=== PATIENT | female | born 1955 | race Caucasian/White ===

== ENCOUNTER 2019-04-18 21:51 | Observation (INO) ==
[2019-04-18] MEDS ORDERED: NITROSTAT SL PRN (22:28)
[2019-04-18] MEDS ORDERED: DUONEB 0.5 MG/3 MG NEB ONE (22:28)
[2019-04-18] MEDS ORDERED: ASPIRIN PO ONE (22:30)
--- NOTE | 2019-04-18 22:43 | DR.CP ---
HPI Time Seen Time Seen by Provider: 04/18/19 22:27 PCP Primary Care Physician: PALOMO Myles Chief Complaint Doctor Comments: Pt presented with CP/sob. Pt has COPD and had sudden onset of left sternal CP at rest 3 hours ago. She reports stabbing 8/10 pain that does not radiate and worse with lying flat. She took her 's nitro with some relief but now pain as returned. She reports ZELAYA and wears home O2 at night. She reports some epigastric pain, but denies any n/v, increase cough of sputum production or fever. Pt currently on theophyllen Chief Complaint:: "MY CHEST STAERTED HURTING 2 OR 3 HOURS AGO. I TOOK A NITRO AND IT EASED OFF. NOW IT IS BACK. Self Treatment fo Chief Complaint: NITRO Reviewed Nurses Notes Review: Yes Source History Provided: Patient Mode of Arrival Mode of Arrival: Ambulatory Timing Onset of Chief Complaint: 04/18/19 Came on: Suddenly Pain: Present Now Duration Duration: Constant Duration: Hours (3) Location Location of Chest Pain: Chest Chest Pain Radiation Location: None Context Onset: At rest and With light exertion Cardiac Risk Factors: Smoker, Family History, Hyperlipidemia and HTN PE Risk Factors: None History of: None Prehospital Care: SL Nitro Quality Quality: Stabbing Severity Severity: Moderate Modifying Factors Worsens: Exertion and Breathing Impoves: NTG (sling) Associated Signs and Symptoms Associated Signs and Symptoms: Shortness of Breath and Abdominal Pain; denies Palpitations, Diaphoresis, Nausea/Vomiting and Calf Pain/Swelling PMH PMH Past Medical History: Yes Past Medical History: COPD, Dyslipidemia, GERD and Hypertension Past Surgical History: Yes Surgical History: [employer] Surgery Family History History of Family Medical Conditions: No (UNKNOWN) Family Medical History Comment: PT ADOPTED. NO KNOWLEDGE OF FAMILY HISTORY Social History Does patient currently use any type of tobacco product: Yes Have you used tobacco products in the last 12 months: Yes Type of Tobacco Use: Cigarettes How many years tobacco product used: 45 Alcohol Use: None Do you use any recreational Drugs:: No Lives With: Spouse Lives Where: Home infectious screening In the last 2 months have you had wt loss of >10#?: NO Have you had fever, night sweats or hemotysis?: No Have you traveled outside the country in the last 6 months?: No Isolation: Standard ROS Review of Systems Constitutional: negative Chills, Fever, Weakness and Loss of Appetite Eyes: negative Blurred Vision ENTM: negative Nose Congestion Respiratoy: Productive Cough and Short of Breath; negative Wheezing Cardiovascular: Chest Pain; negative Edema Gastrointestinal/Abdominal: Abdominal Pain (epigastric); negative Constipation, Nausea and Vomiting Genitourinary: negative Dysuria and Hematuria Neurological: negative Weakness and Speech Problem Musculoskeletal: negative Joint Swelling and Muscle Pain Integumentary: negative Rash Hematologic/Lymphatic: negative Easy Bleeding and Lymphadenopathy Endocrine: negative Unexplained Weight Gain and Decreased Appetite Psychiatric: negative Depression All Other Systems: Reviewed and Negative PE Vitals Vitals: Temperature 98 F Pulse Rate 100 Respiratory Rate 35 Blood Pressure 197/89 O2 Sat by Pulse Oximetry 98 General Limitations: No Limitations General Appearance: Alert and In Distress (respiratory distress) Head Head Exam: Normal Inspection and Normocephalic Eyes Eye exam: Normal Appearance and EOMI; negative Scleral Icterus ENT ENT Exam: Normal Exam, Normal Oropharynx and Mucous Membranes Moist Chest Chest Inspection: Normal Inspection; negative Tenderness Respiratory Respiratory Exam: Prolonged Expiratory Phase and Respiratory Distress; negative Normal Lung Sounds Bilat, Accessory Muscle Use and Chest Wall Tenderness Respiratory Exam: Bilateral: Decreased Breath Sounds (distant) Cardiovascular Cardiovascular Exam: Regular Rate, Normal Rhythm and Normal Heart Sounds Pulse: Normal and Radial Abdominal Exam Abdominal Exam: Normal Inspection, Normal Bowel Sounds, Soft and Tenderness (epigastric) Abdominal Tenderness: Epigastrium Extremities Extremities Exam: Normal Inspection, Full ROM and Normal Capillary Refill; negative Tenderness, Edema and Calf Tenderness Neurologic Neurological Exam: Alert, Oriented X3 and Normal Gait; negative Motor Sensory Deficit Psychiatric Psychiatric Exam: Normal Affect and Normal Mood Skin Skin Exam: Warm, Dry, Intact and Normal Color; negative Rash MDM Additional Information Additional Information Obtained From: Old Records Differential Diagnosis Differential Diagnosis: Angina, Esophageal Reflux/Spasm, Myocardial Infarction, Pleuritis, Pneumonia, Pneumothorax and Pulmonary Embolus COURSE Reevaluation 1st: Improved (pt feeling better after duoneb. K 2.8 will replace K. d/w pt results and will admit) Consultation Consultation Comments: 23:[address] Clarke and will admit Education/Counseling Education/Counseling: Patient, Family, Education and Counseling Educated On: Treatment, Diagnosis, Prognosis and Needs for Follow Up (pcp) ROR Labs Reviewed Laboratory Results Reviewed?: Yes Result Diagrams: 04/18/19 22:58 04/18/19 22:58 Laboratory: WBC 6.9 X10^3/uL (3.6-10.0) 04/18/19 22:58 RBC 4.72 X10^6/uL (3.5-5.4) 04/18/19 22:58 Hgb 15.5 g/dL (12.0-16.0) 04/18/19 22:58 Hct 44.7 % (36.0-47.0) 04/18/19 22:58 MCV 94.6 fL (80.0-100.0) 04/18/19 22:58 MCH 32.9 pg (27.0-34.0) 04/18/19 22:58 MCHC 34.7 g/dL (33.0-35.0) 04/18/19 22:58 RDW 13.6 % (11.6-16.5) 04/18/19 22:58 Plt Count 261 X10^3/uL (150.0-450.0) 04/18/19 22:58 MPV 7.9 fL (7.4-11.0) 04/18/19 22:58 Neut % (Auto) 62.9 % (42.0-75.0) 04/18/19 22:58 Lymph % (Auto) 25.3 % (21.0-51.0) 04/18/19 22:58 [place] % (Auto) 8.8 % (0.0-13.0) 04/18/19 22:58 Eos % (Auto) 2.5 % (0.9-2.9) 04/18/19 22:58 Baso % (Auto) 0.5 % (0.2-1.0) 04/18/19 22:58 Neut # (Auto) 4.3 x10^3/uL (2.2-4.8) 04/18/19 22:58 Lymph # (Auto) 1.7 X10^3/uL (1.3-2.9) 04/18/19 22:58 [place] # (Auto) 0.6 x10^3/uL (0.3-0.8) 04/18/19 22:58 Eos # (Auto) 0.2 x10^3/uL (0.0-0.2) 04/18/19 22:58 Baso # (Auto) 0.0 X10^3/uL (0.0-0.1) 04/18/19 22:58 Absolute Nucleated RBC 0.0 /100WBC 04/18/19 22:58 PT 12.3 SECONDS (11.8-14.3) 04/18/19 22:58 INR Target Range - 04/18/19 22:58 INR 0.95 (0.8-1.3) 04/18/19 22:58 Sodium 142 mmol/L (136-145) 04/18/19 22:58 Corrected Sodium TNP 04/18/19 22:58 Potassium 2.8 mmol/L (3.5-5.1) L* 04/18/19 22:58 Chloride 102 mmol/L (98-107) 04/18/19 22:58 Carbon Dioxide 30.9 mmol/L (21-32) 04/18/19 22:58 BUN 5 mg/dL (7-18) L 04/18/19 22:58 Creatinine 0.76 mg/dL (0.55-1.02) 04/18/19 22:58 Est GFR (MDRD) Af Amer > 60 (>60) 04/18/19 22:58 Est GFR (MDRD) Non-Af > 60 (>60) 04/18/19 22:58 Glucose 92 mg/dL (65-99) 04/18/19 22:58 Calcium 9.2 mg/dL (8.5-10.1) 04/18/19 22:58 Magnesium 1.9 mg/dL (1.7-2.9) 04/18/19 22:58 Troponin I < 0.02 ng/mL (0-1.5) 04/18/19 22:58 Theophylline 9.8 ug/mL (10-20) L 04/18/19 22:58 Other Results Comments: WBC 6.9 K 2.8 trop neg Theophylline 9.8 Low XRAY XRAY Interpreted by: Radiologist and Self XRAY Findings: CXR COPD EKG Rate: 87 [place]: Normal Rhythm: NSR Block: None Hypertrophy: None ST: Nonsp Opioid Opioid Risk Tool Total: 0 Total Score Risk Category: Low Risk Copyright: [facility] predicting aberrant behaviors Diagnosis Discharge Problem: Acute dyspnea, Hypertensive urgency, Acute hypokalemia Chest pain Qualifiers: Chest pain type: other chest pain Qualified Code(s): R07.89 - Other chest pain COPD (chronic obstructive pulmonary disease) Qualifiers: COPD type: COPD with acute exacerbation Qualified Code(s): J44.1 - Chronic obstructive pulmonary disease with (acute) exacerbation Instructions Forms: Excuse From Work ADDITIONAL NOTES Additional Notes Additional Notes: I have personally reviewed your medications, lab results, imaging and time was spent discussion results. Patient educated on their health issue. They verbalized their understanding and agreed with plan of care. Condition: Stable Disposition: Admit
[2019-04-18] MEDS ORDERED: CATAPRES TAB 0.2 MG PO ONE (22:47)
--- NOTE | 2019-04-18 22:55 | RAD ---
HISTORY: Chest pain Study: Single-view change Comparison: None Findings: The patient is rotated. The cardiac silhouette is unremarkable. The lungs are well expanded without focal infiltrate or effusion. Chronic appearing interstitial changes are seen throughout both lungs. The aortic knob is partially calcified. IMPRESSION: 1. Radiographic findings of COPD. Reported By:
[2019-04-18 23:10] LABS: BASOPHILS % (AUTO) 0.5 % (0.2-1.0); EOSINOPHILS # (AUTO) 0.2 x10^3/uL (0.0-0.2); EOSINOPHILS % (AUTO) 2.5 % (0.9-2.9); HEMATOCRIT 44.7 % (36.0-47.0); HEMOGLOBIN 15.5 g/dL (12.0-16.0); LYMPHOCYTES # (AUTO) 1.7 X10^3/uL (1.3-2.9); LYMPHOCYTES % (AUTO) 25.3 % (21.0-51.0); MEAN CORPUSCULAR HEMOGLOBIN 32.9 pg (27.0-34.0); MEAN CORPUSCULAR HGB CONC 34.7 g/dL (33.0-35.0); MEAN CORPUSCULAR VOLUME 94.6 fL (80.0-100.0); MEAN PLATELET VOLUME 7.9 fL (7.4-11.0); MONOCYTES # (AUTO) 0.6 x10^3/uL (0.3-0.8); MONOCYTES % (AUTO) 8.8 % (0.0-13.0); NEUTROPHILS # (AUTO) 4.3 x10^3/uL (2.2-4.8); NEUTROPHILS % (AUTO) 62.9 % (42.0-75.0); PLATELET COUNT 261 X10^3/uL (150.0-450.0); RED BLOOD COUNT 4.72 X10^6/uL (3.5-5.4); RED CELL DISTRIBUTION WIDTH 13.6 % (11.6-16.5); WHITE BLOOD COUNT 6.9 X10^3/uL (3.6-10.0)
[2019-04-18 23:19] LABS: BLOOD UREA NITROGEN 5 mg/dL (7-18); CALCIUM 9.2 mg/dL (8.5-10.1); CARBON DIOXIDE 30.9 mmol/L (21-32); CHLORIDE 102 mmol/L (98-107); CREATININE 0.76 mg/dL (0.55-1.02); SODIUM 142 mmol/L (136-145); TROPONIN I < 0.02 ng/mL (0-1.5); eGFR NON BLACK RACES > 60 (>60)
[2019-04-18] MEDS ORDERED: PREDNISONE TAB 20 MG PO ONE ×2 (23:25→23:37)
[2019-04-18] MEDS ORDERED: NS + KCL 40 MEQ/L 1,000 ML IV SCH (23:45)
[2019-04-18] MEDS ORDERED: K-LYTE EFFERVESCENT PO ONE (23:50)
[2019-04-19] MEDS ORDERED: APRESOLINE INJ 20 MG VIAL IVP PRN (00:04)
[2019-04-19] MEDS ORDERED: DUONEB 0.5 MG/3 MG NEB SCH (01:00)
[2019-04-19] MEDS: DUONEB 0.5 MG/3 MG NEB SCH ×5 (01:22→16:30)
[2019-04-19 01:23] VITALS: BMI 16.5
[2019-04-19] MEDS ORDERED: TYLENOL 325 MG TAB PO PRN (01:39)
[2019-04-19 05:07] LABS: BASOPHILS % (AUTO) 0.3 % (0.2-1.0); EOSINOPHILS % (AUTO) 0.3 % (0.9-2.9); HEMOGLOBIN 14.2 g/dL (12.0-16.0); LYMPHOCYTES # (AUTO) 0.4 X10^3/uL (1.3-2.9); LYMPHOCYTES % (AUTO) 5.4 % (21.0-51.0); MEAN CORPUSCULAR HGB CONC 34.8 g/dL (33.0-35.0); MEAN CORPUSCULAR VOLUME 94.9 fL (80.0-100.0); MEAN PLATELET VOLUME 8.7 fL (7.4-11.0); MONOCYTES # (AUTO) 0.1 x10^3/uL (0.3-0.8); MONOCYTES % (AUTO) 1.5 % (0.0-13.0); NEUTROPHILS # (AUTO) 6.1 x10^3/uL (2.2-4.8); NEUTROPHILS % (AUTO) 92.5 % (42.0-75.0); PLATELET COUNT 229 X10^3/uL (150.0-450.0); RED BLOOD COUNT 4.32 X10^6/uL (3.5-5.4); RED CELL DISTRIBUTION WIDTH 13.6 % (11.6-16.5); WHITE BLOOD COUNT 6.6 X10^3/uL (3.6-10.0)
[2019-04-19 05:20] LABS: BLOOD UREA NITROGEN 6 mg/dL (7-18); CALCIUM 8.9 mg/dL (8.5-10.1); CARBON DIOXIDE 27.4 mmol/L (21-32); CHLORIDE 105 mmol/L (98-107); COR NA(FOR HYPERGLY) 142 mmol/L (136-145); CREATININE 0.66 mg/dL (0.55-1.02); SODIUM 141 mmol/L (136-145); TROPONIN I < 0.02 ng/mL (0-1.5); eGFR NON BLACK RACES > 60 (>60)
[2019-04-19 05:26] LABS: PLATELET MORPHOLOGY COMMENT NORMAL (NORMAL)
[2019-04-19] MEDS ORDERED: SALINE 3% 15 ML NEB TX NEB ONE (08:41)
[2019-04-19] MEDS ORDERED: PHARMACY CONSULT - DOSE _____ XX SCH (09:00)
[2019-04-19] MEDS: LOVENOX INJ 40 MG SYR SC SCH (13:04)
[2019-04-19] MEDS: NS 1000 ML 1,000 ML IV SCH (14:57)
[2019-04-19] MEDS: NEURONTIN CAP 300 MG PO SCH (21:06)
[2019-04-19] MEDS: CRESTOR TAB 10 MG PO SCH (21:06)
[2019-04-19] MEDS: PriLOSEC PO SCH (21:06)
[2019-04-20] MEDS: XOPENEX 1.25 MG/3 ML NEBULE NEB SCH ×4 (00:11→17:37)
[2019-04-20 05:15] LABS: BASOPHILS # (AUTO) 0.1 X10^3/uL (0.0-0.1); BASOPHILS % (AUTO) 0.9 % (0.2-1.0); EOSINOPHILS # (AUTO) 0.1 x10^3/uL (0.0-0.2); EOSINOPHILS % (AUTO) 1.2 % (0.9-2.9); HEMATOCRIT 39.7 % (36.0-47.0); HEMOGLOBIN 13.4 g/dL (12.0-16.0); LYMPHOCYTES # (AUTO) 1.8 X10^3/uL (1.3-2.9); LYMPHOCYTES % (AUTO) 22.3 % (21.0-51.0); MEAN CORPUSCULAR HEMOGLOBIN 32.6 pg (27.0-34.0); MEAN CORPUSCULAR HGB CONC 33.8 g/dL (33.0-35.0); MEAN CORPUSCULAR VOLUME 96.6 fL (80.0-100.0); MEAN PLATELET VOLUME 8.8 fL (7.4-11.0); MONOCYTES # (AUTO) 0.7 x10^3/uL (0.3-0.8); MONOCYTES % (AUTO) 8.8 % (0.0-13.0); NEUTROPHILS # (AUTO) 5.5 x10^3/uL (2.2-4.8); NEUTROPHILS % (AUTO) 66.8 % (42.0-75.0); PLATELET COUNT 213 X10^3/uL (150.0-450.0); RED BLOOD COUNT 4.11 X10^6/uL (3.5-5.4); RED CELL DISTRIBUTION WIDTH 13.5 % (11.6-16.5); WHITE BLOOD COUNT 8.3 X10^3/uL (3.6-10.0)
--- NOTE | 2019-04-20 05:30 | RAD ---
Examination: AP chest History: SOB Comparison 04/18/2019 Findings: Continued normal heart size with pulmonary hyperinflation and diffuse interstitial coarsening of the interstitial pulmonary pattern. No superimposed consolidation, pneumothorax or developing pleural effusion. Impression: Stable chronic findings. No interval change. Reported By:
[2019-04-20 05:32] LABS: ALANINE AMINOTRANSFERASE 17 Units/L (12-78); ALBUMIN 2.8 g/dL (3.4-5.0); ALKALINE PHOSPHATASE 56 Units/L (46-116); ASPARTATE AMINO TRANSFERASE 28 Units/L (15-37); BLOOD UREA NITROGEN 6 mg/dL (7-18); CARBON DIOXIDE 27.8 mmol/L (21-32); CHLORIDE 108 mmol/L (98-107); CREATININE 0.55 mg/dL (0.55-1.02); SODIUM 143 mmol/L (136-145); TOTAL PROTEIN 5.8 g/dL (6.4-8.2); eGFR NON BLACK RACES > 60 (>60)
[2019-04-20] MEDS: NS 1000 ML 1,000 ML IV SCH ×3 (05:59→18:18)
[2019-04-20] MEDS ORDERED: KLOR-CON PO PRN (07:55)
[2019-04-20] MEDS ORDERED: POTASSIUM CHL 40 MEQ/NS 0.45% 500 ML IV PRN (07:55)
[2019-04-20] MEDS ORDERED: K-DUR TAB 20 MEQ PO PRN (07:55)
[2019-04-20] MEDS ORDERED: K-RIDER 10 MEQ/NS 100 ML 10 MEQ/100 ML BAG IV PRN (07:55)
[2019-04-20] MEDS ORDERED: MICRO K EXTEN CAP 10 MEQ PO PRN (07:55)
[2019-04-20] MEDS ORDERED: POTASSIUM CHL 60 MEQ/NS 0.45% 500 ML IV PRN (07:55)
[2019-04-20] MEDS ORDERED: POTASSIUM CHLORIDE LIQ 20 MEQ UDC PO PRN (07:55)
[2019-04-20 08:38] LABS: CKMB % 3.3 % (<4); CREATINE KINASE 185 Units/L (26-192); TROPONIN I < 0.02 ng/mL (0-1.5)
[2019-04-20 08:44] LABS: CREATINE KINASE MB 6.1 ng/mL (0-4.0)
[2019-04-20] MEDS ORDERED: DALIRESP PO SCH (09:00)
[2019-04-20] MEDS: LOVENOX INJ 40 MG SYR SC SCH (09:06)
[2019-04-20 14:26] LABS: CKMB % 3.8 % (<4); CREATINE KINASE 250 Units/L (26-192); TROPONIN I < 0.02 ng/mL (0-1.5)
[2019-04-20 14:31] LABS: CREATINE KINASE MB 9.5 ng/mL (0-4.0)
[2019-04-20 20:13] LABS: CKMB % 4.7 % (<4); CREATINE KINASE 278 Units/L (26-192); TROPONIN I < 0.02 ng/mL (0-1.5)
[2019-04-20 20:21] LABS: CREATINE KINASE MB 13.1 ng/mL (0-4.0)
[2019-04-20] MEDS: PriLOSEC PO SCH (21:28)
[2019-04-20] MEDS: NEURONTIN CAP 300 MG PO SCH (21:29)
[2019-04-20] MEDS: CRESTOR TAB 10 MG PO SCH (21:29)
[2019-04-21] MEDS: XOPENEX 1.25 MG/3 ML NEBULE NEB SCH ×2 (00:15→05:30)
[2019-04-21 05:01] LABS: BASOPHILS # (AUTO) 0.1 X10^3/uL (0.0-0.1); BASOPHILS % (AUTO) 0.8 % (0.2-1.0); EOSINOPHILS # (AUTO) 0.2 x10^3/uL (0.0-0.2); EOSINOPHILS % (AUTO) 2.5 % (0.9-2.9); HEMATOCRIT 44.6 % (36.0-47.0); HEMOGLOBIN 15.1 g/dL (12.0-16.0); LYMPHOCYTES # (AUTO) 1.9 X10^3/uL (1.3-2.9); LYMPHOCYTES % (AUTO) 23.5 % (21.0-51.0); MEAN CORPUSCULAR HEMOGLOBIN 32.3 pg (27.0-34.0); MEAN CORPUSCULAR HGB CONC 33.8 g/dL (33.0-35.0); MEAN CORPUSCULAR VOLUME 95.7 fL (80.0-100.0); MEAN PLATELET VOLUME 8.8 fL (7.4-11.0); MONOCYTES # (AUTO) 0.8 x10^3/uL (0.3-0.8); MONOCYTES % (AUTO) 10.2 % (0.0-13.0); NEUTROPHILS # (AUTO) 5.1 x10^3/uL (2.2-4.8); PLATELET COUNT 257 X10^3/uL (150.0-450.0); RED BLOOD COUNT 4.66 X10^6/uL (3.5-5.4); RED CELL DISTRIBUTION WIDTH 13.5 % (11.6-16.5); WHITE BLOOD COUNT 8.1 X10^3/uL (3.6-10.0)
[2019-04-21 05:19] LABS: ALANINE AMINOTRANSFERASE 23 Units/L (12-78); ALBUMIN 3.2 g/dL (3.4-5.0); ALKALINE PHOSPHATASE 73 Units/L (46-116); ASPARTATE AMINO TRANSFERASE 35 Units/L (15-37); BLOOD UREA NITROGEN 9 mg/dL (7-18); CALCIUM 8.6 mg/dL (8.5-10.1); CARBON DIOXIDE 30.7 mmol/L (21-32); CHLORIDE 103 mmol/L (98-107); COR CA(FOR HYPOALB) 9.2 mg/dL (8.5-10.1); CREATININE 0.66 mg/dL (0.55-1.02); SODIUM 140 mmol/L (136-145); TOTAL PROTEIN 6.6 g/dL (6.4-8.2); eGFR NON BLACK RACES > 60 (>60)
--- NOTE | 2019-04-21 05:51 | RAD ---
Chest radiograph, single view. History: Shortness of breath Comparison: 04/20/2019. Findings: The lungs are hyperinflated with diffuse chronic interstitial lung changes, compatible COPD. There is no new consolidation or effusion. Cardiac silhouette and pulmonary vasculature are within normal limits. Conclusion: Stable examination without acute chest process. Reported By:
[2019-04-21] MEDS: NS 1000 ML 1,000 ML IV SCH (07:05)
[2019-04-21 07:43] VITALS: BP 151/65
[2019-04-21] MEDS: LOVENOX INJ 40 MG SYR SC SCH (08:53)
--- NOTE | 2019-04-21 13:30 | DR.H&P ---
H&P - History & Physical for Day of: H&P Date: 04/19/19 - Chief Complaint Chief Complaint: CHEST PAIN, SOB - History of Present Illness History of Present Illness: IS A 63 YEAR OLD PATIENT OF OURS WHO PRESENTED TO THE ER WITH COMPLAINTS OF CHEST PAIN. PAINT REPORTEDLY STARTED 2-3 HOURS PRIOR TO ARRIVAL. SHE REPORTS TAKING A NITROGLYCERIN WITH SLIGHT IMPROVEMENT IN PAIN, HOWEVER, PAIN HAS RETURNED. SHE ALSO COMPLAINS OF SHORTNESS OF BREATH. PATIENT HAS A HISTORY OF COPD FOR WHICH SHE USES OXYGEN VIA NASAL CANNULA AT BEDTIME. SHE DENIES NAUSEA, VOMITING, OR COUGH. PAIN IS DESCRIBED SUBSTERNAL AND IS RATED 8/10. ON ARRIVAL TO THE ER, VITALS WERE 98.0-96-35-90%-197/89. LABS WERE OBTAINED. ABNORMAL LAB VALUES INCLUDE THE FOLLOWING: POTASSIUM 2.8, BUN 5, THEYOPHYLLINE 9.8. CARDIAC ENZYMES ARE WITHIN NORMAL LIMITS. AN EKG WAS OBTAINED AND REVEALED: SINUS RHYTHM WITH HR 87. A CHEST XRAY WAS OBTAINED AND REVEALED: RADIOGRAPHIC FINDINGS OF COPD. SHE WAS GIVEN A DUONEB, ASPIRIN 325MG PO X 1, CATAPRES 0.2MG PO X 1, PREDNISONE 60MG PO X 1, AND GIVEN K-LYTE EFFERVESCENT 25MEQ PO X 1 DOSE. BLOOD PRESSURE DID DECREASE TO 143/63. SHE WAS ADMITTED FOR FURTHER EVALUATION AND TREATMENTE OF HYPOKALEMIA, COPD, CHEST PAIN, AND HYPERTENSIVE URGENCY URGENCY. SHE WAS STARTED ON NORMAL SALINE WITH 40MEQ KCL AT 80ML/HR, RESPIRATORY TREATMENTS, LOVENOX 40MG SC DAILY, AND HOME MEDICATIONS WERE RESUMED. WE PLAN TO OBTAIN SERIAL CARDIAC ENZYMES AND EKGS. OTHERWISE, WE WILL FOLLOW UP WITH AM LABS AND CHEST XRAY AND CONTINUE TO MONITOR. - Past Medical History Past Medical History: Hypertension, Dyslipidemia, COPD, GERD - Past Surgical History Surgical History: - Social History Does patient currently use any type of tobacco product: Yes Have you used tobacco products in the last 12 months: Yes Type of Tobacco Use: Cigarettes How many years tobacco product used: 45 Alcohol Use: None Drug Use: None - Medications Home Medications: No Known Drug Allergies Allergy (Verified 04/18/19 23:01) CONTINUE taking the following medications Daliresp 250 mcg PO HS 04/19/19 [History] albuterol sulfate 2.5 mg INHALATION QID 04/19/19 [History] gabapentin 300 mg PO HS 04/19/19 [History] metoprolol succinate 50 mg PO HS 04/19/19 [History] omeprazole 40 mg PO HS 04/19/19 [History] rosuvastatin 10 mg PO HS 04/19/19 [History] New Prescriptions roflumilast [Daliresp] 250 mcg PO HS tab 04/21/19 [Rx] - Review of Systems Constitutional: No Symptoms Reported Eyes: No Symptoms Reported ENT: No Symptoms Reported Respiratory: Shortness of Breath Cardiovascular: Chest Pain Gastrointestinal: No Symptoms Reported Genitourinary: No Symptoms Reported Musculoskeletal: No Symptoms Reported Skin: No Symptoms Reported Neurological: No Symptoms Reported - Physical Exam Vital Signs: Temperature 98.1 F Pulse Rate [Brachial] 78 Pulse Rate 98 Respiratory Rate 18 Blood Pressure [Left Arm] 151/65 Blood Pressure 197/89 O2 Sat by Pulse Oximetry 95 Oriented: Normal Eyes: Normal Ear: Normal Nose: Normal Throat: Normal Respiratory: Diminished Throughout Cardiovascular: Normal. negative: S3, S4, Murmur : Normal Auscultation: Bowel Sounds: Normal Palpation: Normal Tenderness: Normal Skin: Normal Musculoskeletal: Normal Psychiatric: Normal Mood Description: Calm Affect: Normal Speech Pattern: Clear - Assessment/Plan (1) Chest pain Qualifiers: Chest pain type: other chest pain Qualified Code(s): R07.89 - Other chest pain; R07.8 - Other chest pain Status: Acute Plan: OBTAIN SERIAL CARDIAC ENZYMES AND EKGS, SUPPLEMENTAL OXYGEN, CONTINUE TO MONITOR (2) Acute dyspnea Status: Acute (3) COPD (chronic obstructive pulmonary disease) Qualifiers: COPD type: COPD with acute exacerbation Qualified Code(s): J44.1 - Chronic obstructive pulmonary disease with (acute) exacerbation Status: Acute Plan: RESPIRATORY TX, SUPPLEMENTAL OXYGEN, CONTINUE HOME MEDS (4) Hypertensive urgency Status: Acute Plan: APRESOLINE, CONTINUE HOME MEDS, CONTINUE TO MONITOR (5) Acute hypokalemia Status: Acute Plan: POTASSIUM PROTOCOL, CONTINUE TO MONTIOR - Allergies Allergies/Adverse Reactions: Allergies Allergy/AdvReac Type Severity Reaction Status Date / Time No Known Drug Allergies Allergy Verified 04/18/19 23:01
[2019-04-21] MEDS ORDERED: DALIRESP PO SCH (21:00)
== END 2019-04-21 10:30 | disposition home or self-care (01) ==
LOC: MED/SURG 21:58 → ER 21:58 → MED/SURG 04-19 00:48
PROVIDERS: ADMIT Internal Medicine; ATTEND Internal Medicine
DX: R07.89 Other chest pain; Z99.81 Dependence on supplemental oxygen; E78.2 Mixed hyperlipidemia; K21.9 Gastro-esophageal reflux disease without esophagitis; I16.0 Hypertensive urgency; J44.1 Chronic obstructive pulmonary disease with (acute) exacerbation; R26.89 Other abnormalities of gait and mobility; I10 Essential (primary) hypertension; E87.6 Hypokalemia; R06.02 Shortness of breath
CPT/HCPCS: 36415; 71010; 71045; 80048; 80053; 80198; 82550; 82553; 83735; 84132; 84484; 85025; 85610; 87070; 87205; 93005; 94640; 94760; 96365; 96367; 96374; 97165; 99284; A4222; G0378; J3490; J7030; J7512; J7620; J8499

== ENCOUNTER 2020-01-17 08:57 | Observation (INO) ==
[2020-01-17 13:14] LABS: BILIRUBIN,URINE NEGATIVE (NEGATIVE); BLOOD/HEMOGLOBIN,URINE NEGATIVE (NEGATIVE); GLUCOSE, URINE NEGATIVE (NEGATIVE); KETONES,URINE NEGATIVE (NEGATIVE); LEUKOCYTE ESTERASE ,URINE NEGATIVE (NEGATIVE); NITRITES,URINE NEGATIVE (NEGATIVE); PH,URINE 6.5 (5.0 - 8.0); PROTEIN,URINE NEGATIVE (NEGATIVE); UROBILINOGEN,URINE NORMAL (NORMAL)
[2020-01-17 13:37] LABS: APPEARANCE,URINE CLEAR (CLEAR); COLOR,URINE YELLOW (YELLOW)
[2020-01-17 13:57] VITALS: BMI 13.9
[2020-01-17 14:02] LABS: ABG BASE EXCESS 2.2 mmol/L (-2.0-2.0); ABG HCO3 24.2 mmol/L (22-26)
[2020-01-17] MEDS ORDERED: PROVENTIL NEB TX 0.083% 2.5MG/ 3ML NEB PRN (14:07)
[2020-01-17 14:25] LABS: BASOPHILS # (AUTO) 0.1 X10^3/uL (0.0-0.1); EOSINOPHILS # (AUTO) 0.5 x10^3/uL (0.0-0.2); EOSINOPHILS % (AUTO) 5.8 % (0.9-2.9); HEMATOCRIT 43.3 % (36.0-47.0); HEMOGLOBIN 14.9 g/dL (12.0-16.0); LYMPHOCYTES # (AUTO) 1.3 X10^3/uL (1.3-2.9); LYMPHOCYTES % (AUTO) 13.8 % (21.0-51.0); MEAN CORPUSCULAR HEMOGLOBIN 32.8 pg (27.0-34.0); MEAN CORPUSCULAR HGB CONC 34.4 g/dL (33.0-35.0); MEAN CORPUSCULAR VOLUME 95.3 fL (80.0-100.0); MEAN PLATELET VOLUME 8.6 fL (7.4-11.0); MONOCYTES # (AUTO) 0.6 x10^3/uL (0.3-0.8); MONOCYTES % (AUTO) 6.9 % (0.0-13.0); NEUTROPHILS # (AUTO) 6.9 x10^3/uL (2.2-4.8); NEUTROPHILS % (AUTO) 72.5 % (42.0-75.0); PLATELET COUNT 253 X10^3/uL (150.0-450.0); RED BLOOD COUNT 4.55 X10^6/uL (3.5-5.4); RED CELL DISTRIBUTION WIDTH 13.1 % (11.6-16.5); WHITE BLOOD COUNT 9.4 X10^3/uL (3.6-10.0)
[2020-01-17] MEDS: ZITHROMAX INJ 500 MG VIAL 500 MG in D5W 250 ML IV 250 ML IV SCH (15:00)
[2020-01-17] MEDS: NS 1000 ML 1,000 ML IV SCH (15:00)
[2020-01-17] MEDS: PROVENTIL NEB TX 0.083% 2.5MG/ 3ML NEB SCH ×3 (15:11→21:10)
[2020-01-17 15:22] LABS: ALANINE AMINOTRANSFERASE 24 Units/L (12-78); ALKALINE PHOSPHATASE 79 Units/L (46-116); ASPARTATE AMINO TRANSFERASE 38 Units/L (15-37); BLOOD UREA NITROGEN 17 mg/dL (7-18); CALCIUM 9.1 mg/dL (8.5-10.1); CARBON DIOXIDE 30.4 mmol/L (21-32); CHLORIDE 102 mmol/L (98-107); CKMB % 4.4 % (<4); CREATINE KINASE 257 Units/L (26-192); CREATININE 0.76 mg/dL (0.55-1.02); LACTATE DEHYDROGENASE 329 Units/L (81-234); SODIUM 140 mmol/L (136-145); TOTAL PROTEIN 7.9 g/dL (6.4-8.2); TROPONIN I < 0.02 ng/mL (0-1.5); eGFR NON BLACK RACES > 60 (>60)
[2020-01-17 15:29] LABS: CREATINE KINASE MB 11.2 ng/mL (0-4.0)
[2020-01-17] MEDS: SOLU-Medrol 40 MG VIAL IVP SCH ×2 (15:44→21:02)
--- NOTE | 2020-01-17 16:22 | RAD ---
HISTORYSOB, COPD EXACERBATION, FEVERSTUDYCHEST, 1 VIEWCOMPARISONChest film September 06, 2019FINDINGSThe trachea is midline. The cardiac silhouette is unremarkable . The lungs are markedly hyperexpanded and show chronic lung changes of fibrosis in both upper lung pierre without change from the September 06, 2019 film. No acute infiltrates are observed. Clear without focal infiltrate or effusion. The bony thorax is unremarkable.IMPRESSIONCOPD and chronic changes of fibrosis but no acute findings and no change from the September 06, 2019 recent chest film.Electronically signed by: LETICIA KAUR (January 17, 2020 16:21:39)
[2020-01-17] MEDS: ASPIRIN EC 81 MG PO SCH (21:01)
[2020-01-17] MEDS: CRESTOR TAB 10 MG PO SCH (21:01)
[2020-01-17] MEDS: COLACE CAP 100 MG PO SCH (21:01)
[2020-01-17] MEDS: PriLOSEC PO SCH (21:01)
[2020-01-17] MEDS: NEURONTIN CAP 300 MG PO SCH (21:02)
[2020-01-17] MEDS: LOPRESSOR TAB 50 MG PO SCH (21:02)
[2020-01-17] MEDS: MILK OF MAGNESIA PO SCH (21:08)
[2020-01-18] MEDS: PROVENTIL NEB TX 0.083% 2.5MG/ 3ML NEB SCH ×6 (01:15→20:55)
[2020-01-18] MEDS: NS 1000 ML 1,000 ML IV SCH ×3 (01:38→16:18)
[2020-01-18] MEDS: SOLU-Medrol 40 MG VIAL IVP SCH ×3 (05:08→21:01)
[2020-01-18 05:32] LABS: ALANINE AMINOTRANSFERASE 21 Units/L (12-78); ALBUMIN 3.3 g/dL (3.4-5.0); ALKALINE PHOSPHATASE 62 Units/L (46-116); ASPARTATE AMINO TRANSFERASE 24 Units/L (15-37); BLOOD UREA NITROGEN 13 mg/dL (7-18); CALCIUM 8.4 mg/dL (8.5-10.1); CARBON DIOXIDE 32.7 mmol/L (21-32); CHLORIDE 105 mmol/L (98-107); COR NA(FOR HYPERGLY) 143 mmol/L (136-145); CREATININE 0.73 mg/dL (0.55-1.02); SODIUM 142 mmol/L (136-145); TOTAL PROTEIN 6.4 g/dL (6.4-8.2); eGFR NON BLACK RACES > 60 (>60)
--- NOTE | 2020-01-18 05:33 | RAD ---
HISTORYSOB COPDSTUDYAP [id number] normal heart size, symmetric pulmonary hyperexpansion and diffuse bilateral pulmonary changes of interstitial fibrosis and scarring. No superimposed consolidat ion, edema or developing pneumothorax.IMPRESSIONNo change; no acute findings. COPD and interstitial f ibrosis.Electronically signed by: JERRY HANLEY (January 18, 2020 05:32:20)
[2020-01-18 05:58] LABS: CKMB % 5.1 % (<4); CREATINE KINASE 139 Units/L (26-192); TROPONIN I < 0.02 ng/mL (0-1.5)
[2020-01-18 06:00] LABS: CREATINE KINASE MB 7.1 ng/mL (0-4.0)
[2020-01-18 06:06] LABS: BASOPHILS % (AUTO) 0.2 % (0.2-1.0); EOSINOPHILS % (AUTO) 0.1 % (0.9-2.9); HEMOGLOBIN 12.7 g/dL (12.0-16.0); LYMPHOCYTES # (AUTO) 0.4 X10^3/uL (1.3-2.9); LYMPHOCYTES % (AUTO) 9.8 % (21.0-51.0); MEAN CORPUSCULAR HEMOGLOBIN 32.6 pg (27.0-34.0); MEAN CORPUSCULAR HGB CONC 34.4 g/dL (33.0-35.0); MEAN CORPUSCULAR VOLUME 94.8 fL (80.0-100.0); MEAN PLATELET VOLUME 8.8 fL (7.4-11.0); MONOCYTES # (AUTO) 0 x10^3/uL (0.3-0.8); MONOCYTES % (AUTO) 1.2 % (0.0-13.0); NEUTROPHILS # (AUTO) 3.5 x10^3/uL (2.2-4.8); NEUTROPHILS % (AUTO) 88.7 % (42.0-75.0); PLATELET COUNT 214 X10^3/uL (150.0-450.0); RED CELL DISTRIBUTION WIDTH 12.9 % (11.6-16.5)
[2020-01-18] MEDS ORDERED: POTASSIUM CHL 60 MEQ/NS 0.45% 500 ML IV PRN (07:15)
[2020-01-18] MEDS ORDERED: K-RIDER 10 MEQ/NS 100 ML 10 MEQ/100 ML BAG IV PRN (07:15)
[2020-01-18] MEDS ORDERED: MICRO K EXTEN CAP 10 MEQ PO PRN (07:15)
[2020-01-18] MEDS ORDERED: POTASSIUM CHL 40 MEQ/NS 0.45% 500 ML IV PRN (07:15)
[2020-01-18] MEDS ORDERED: POTASSIUM CHLORIDE LIQ 20 MEQ UDC PO PRN (07:15)
[2020-01-18] MEDS ORDERED: KLOR-CON PO PRN (07:15)
[2020-01-18] MEDS: LOPRESSOR TAB 50 MG PO SCH ×2 (09:26→21:00)
[2020-01-18] MEDS: ZITHROMAX INJ 500 MG VIAL 500 MG in D5W 250 ML IV 250 ML IV SCH (09:27)
[2020-01-18] MEDS: MILK OF MAGNESIA PO SCH ×2 (09:27→21:00)
[2020-01-18] MEDS: K-DUR TAB 20 MEQ PO PRN (09:30)
--- NOTE | 2020-01-18 11:14 | DR.H&P ---
H&P History & Physical for Day of: H&P Date: 01/18/20 Chief Complaint Chief Complaint: shortness of breath Allergies Allergies Allergy/AdvReac Type Severity Reaction Status Date / Time No Known Drug Allergies Allergy Verified 04/18/19 23:01 History of Present Illness History of Present Illness: Ms. Abdullahi is a 64y/o female with a PMH of severe COPD on continuous home oxygen 2.5L and CPAP qHS presented with worsening SOB. She sees Dr. Funk and went to clinic on and was advised to go to ED but refused. She states her breathing got worse the next day and was directly admitted to the hospital. She smokes 2 cigarettes a day. She has been using albuterol more frequently and uses duonebs 4 times a day. She reports fever, no chills. She has hx of LE DVT years ago. On admission: CXR showed interstitial fibrosis and scarring with COPD changes. D-dimer: elevated 476 CRP: 5.20 LDH:329 CK: 257 Trop (-) AB.53/ COVID-19 negative Plan: continue solumedrol, azithromycin, replace K as per protocol, continue IVF Will get a CTA due to elevated d-dimer and SOB. Past Medical History Past Medical History: COPD, Dyslipidemia, GERD, Hypertension and Sleep Apnea Past Surgical History Surgical History: Social History Does patient currently use any type of tobacco product: Yes Have you used tobacco products in the last 12 months: Yes Type of Tobacco Use: Cigarettes How many years tobacco product used: 50 Does any household member use tobacco: No Alcohol Use: None Drug Use: None Medications Home Medications: No Known Drug Allergies Allergy (Verified 04/18/19 23:01) CONTINUE taking the following medications aspirin [Aspirin Low Dose] 81 mg PO HS 01/17/20 [History] Labs Result Diagrams: 01/18/20 04:36 01/18/20 04:36 Labs: 01/17/20 16:26 Sputum - Expectorated Sputum - Final Laboratory WBC 4.0 X10^3/uL (3.6-10.0) 01/18/20 04:36 RBC 3.90 X10^6/uL (3.5-5.4) 01/18/20 04:36 Hgb 12.7 g/dL (12.0-16.0) D 01/18/20 04:36 Hct 37.0 % (36.0-47.0) 01/18/20 04:36 MCV 94.8 fL (80.0-100.0) 01/18/20 04:36 MCH 32.6 pg (27.0-34.0) 01/18/20 04:36 MCHC 34.4 g/dL (33.0-35.0) 01/18/20 04:36 RDW 12.9 % (11.6-16.5) 01/18/20 04:36 Plt Count 214 X10^3/uL (150.0-450.0) 01/18/20 04:36 MPV 8.8 fL (7.4-11.0) 01/18/20 04:36 Neut % (Auto) 88.7 % (42.0-75.0) H 01/18/20 04:36 Lymph % (Auto) 9.8 % (21.0-51.0) L 01/18/20 04:36 [place] % (Auto) 1.2 % (0.0-13.0) 01/18/20 04:36 Eos % (Auto) 0.1 % (0.9-2.9) L 01/18/20 04:36 Baso % (Auto) 0.2 % (0.2-1.0) 01/18/20 04:36 Neut # (Auto) 3.5 x10^3/uL (2.2-4.8) 01/18/20 04:36 Lymph # (Auto) 0.4 X10^3/uL (1.3-2.9) L 01/18/20 04:36 [place] # (Auto) 0 x10^3/uL (0.3-0.8) L 01/18/20 04:36 Eos # (Auto) 0.0 x10^3/uL (0.0-0.2) 01/18/20 04:36 Baso # (Auto) 0.0 X10^3/uL (0.0-0.1) 01/18/20 04:36 Absolute Nucleated RBC 0.1 /100WBC 01/18/20 04:36 PT 13.4 SECONDS (11.8-14.3) 01/17/20 13:55 INR Target Range - 01/17/20 13:55 INR 1.05 (0.8-1.3) 01/17/20 13:55 APTT 29.9 SECONDS (22.9-36.5) 01/17/20 13:55 PTT Comment - 01/17/20 13:55 D-Dimer 476 ng/mL (0-400) H* 01/17/20 13:55 Sample Site Rb 01/17/20 13:56 ABG pH 7.530 (7.35-7.45) H 01/17/20 13:56 ABG pCO2 29.0 mmHg (35.0-45.0) L 01/17/20 13:56 ABG pO2 82.0 mmHg (80.0-100.0) 01/17/20 13:56 ABG HCO3 24.2 mmol/L (22-26) 01/17/20 13:56 ABG O2 Saturation 97.0 % (90-100) 01/17/20 13:56 ABG Base Excess 2.2 mmol/L (-2.0-2.0) H 01/17/20 13:56 Xavier Test Na 01/17/20 13:56 A-a Gradient 81.0 mmHg 01/17/20 13:56 FiO2 28.0 01/17/20 13:56 Blood Gas Comments Kayla well cb 01/17/20 13:56 Sodium 142 mmol/L (136-145) 01/18/20 04:36 Corrected Sodium 143 mmol/L (136-145) 01/18/20 04:36 Potassium 3.4 mmol/L (3.5-5.1) L 01/18/20 04:36 Chloride 105 mmol/L (98-107) 01/18/20 04:36 Carbon Dioxide 32.7 mmol/L (21-32) H 01/18/20 04:36 BUN 13 mg/dL (7-18) 01/18/20 04:36 Creatinine 0.73 mg/dL (0.55-1.02) 01/18/20 04:36 Est GFR (MDRD) Af Amer > 60 (>60) 01/18/20 04:36 Est GFR (MDRD) Non-Af > 60 (>60) 01/18/20 04:36 Glucose 134 mg/dL (65-99) H 01/18/20 04:36 Calcium 8.4 mg/dL (8.5-10.1) L 01/18/20 04:36 Corrected Calcium 9.0 mg/dL (8.5-10.1) 01/18/20 04:36 Magnesium 1.9 mg/dL (1.7-2.9) 01/18/20 04:36 Ferritin 238 ng/mL (8-252) 01/17/20 13:55 Total Bilirubin 0.80 mg/dL (0.2-1.0) 01/18/20 04:36 AST 24 Units/L (15-37) 01/18/20 04:36 ALT 21 Units/L (12-78) 01/18/20 04:36 Alkaline Phosphatase 62 Units/L (46-116) 01/18/20 04:36 Lactate Dehydrogenase 329 Units/L (81-234) H 01/17/20 13:55 Creatine Kinase 139 Units/L (26-192) 01/18/20 04:36 CK-MB (CK-2) 7.1 ng/mL (0-4.0) H* 01/18/20 04:36 CK/CKMB % Calc 5.1 % (<4) 01/18/20 04:36 Troponin I < 0.02 ng/mL (0-1.5) 01/18/20 04:36 C-Reactive Protein 3.60 mg/L (0-3.0) H 01/18/20 04:36 Total Protein 6.4 g/dL (6.4-8.2) 01/18/20 04:36 Albumin 3.3 g/dL (3.4-5.0) L 01/18/20 04:36 Globulin 3.1 g/dL (2.5-4.5) 01/18/20 04:36 Albumin/Globulin Ratio 1.1 Ratio (1.1-2.1) 01/18/20 04:36 Specimen Type Clean catch urine 01/17/20 12:57 Urine Color Yellow (YELLOW) 01/17/20 12:57 Urine Appearance Clear (CLEAR) 01/17/20 12:57 Urine pH 6.5 (5.0 - 8.0) 01/17/20 12:57 Ur Specific [place] 1.015 (1.000-1.030) 01/17/20 12:57 Urine Protein Negative (NEGATIVE) 01/17/20 12:57 Urine Glucose (UA) Negative (NEGATIVE) 01/17/20 12:57 Urine Ketones Negative (NEGATIVE) 01/17/20 12:57 Urine Occult Blood Negative (NEGATIVE) 01/17/20 12:57 Urine Nitrite Negative (NEGATIVE) 01/17/20 12:57 Urine Bilirubin Negative (NEGATIVE) 01/17/20 12:57 Urine Urobilinogen Normal (NORMAL) 01/17/20 12:57 Ur Leukocyte Esterase Negative (NEGATIVE) 01/17/20 12:57 SARS-CoV-2 (PCR) Negative (NEGATIVE) 01/17/20 12:00 Review of Systems Constitutional: Fever and Weakness Eyes: No Symptoms Reported ENT: No Symptoms Reported Respiratory: Cough, Shortness of Breath and SOB with Excertion Cardiovascular: No Symptoms Reported Gastrointestinal: No Symptoms Reported Genitourinary: No Symptoms Reported Musculoskeletal: No Symptoms Reported Skin: No Symptoms Reported Neurological: No Symptoms Reported Physical Exam Vital Signs: Temperature 97.8 F Pulse Rate [Right] 72 Pulse Rate 83 Respiratory Rate 18 Blood Pressure [Left Arm] 170/74 Blood Pressure 201/83 O2 Sat by Pulse Oximetry 92 Oriented: Normal Eyes: Normal Ear: Normal Nose: Normal Respiratory: Diminished Throughout Cardiovascular: Normal Auscultation: Bowel Sounds: Normal Palpation: Normal Tenderness: Normal Skin: Normal Musculoskeletal: Normal Psychiatric: Normal Mood Description: Calm Affect: Normal Assessment/Plan (1) COPD with acute exacerbation: Status: Acute (2) Acute dyspnea: Status: Acute (3) Elevated d-dimer: Status: Acute (4) Hypokalemia: Status: Acute (5) Tobacco abuse: Status: Acute (6) Protein calorie malnutrition: Qualifiers: Protein-calorie malnutrition severity: moderate Qualified Code(s): E44.0 - Moderate protein-calorie malnutrition Status: Acute Review H&P Reviewed: Yes Patient was examined?: Yes
[2020-01-18] MEDS: MAGNESIUM SULFATE 1 GRAM/100 mL PREMIX 1 GM/100 ML BAG IV PRN ×2 (12:04→13:45)
--- NOTE | 2020-01-18 15:55 | CT ---
HISTORYSOB, ELEVATED D-DIMER; RULE OUT PESTUDYCTA CHESTCOMPARISONNoneTECHNIQUEMultiple axial images of the chest were obtained from the thoracic inlet to the upper abdomen after the administration of IV contrast. A PE protocol with 3D reconstructions utilizing axial MIPS imaging was performed and reviewed. Dose reduction techniques including Automated Exposure Control (AEC) and adjustment of mA and kV were utilized.FINDINGSThe mediastinum does not demonstrate significant pathological lymphadenopathy. There is no pericardial effusion observed. The thoracic aorta demonstrates atherosclerosis without evidence for aneurysmal dilatation. The central pulmonary arterial system does not demonstrate central filling defects to suggest pulmonary emboli.Evaluation of the lung parenchyma fails to demonstrate focal consolidation or effusion. There is a faint 3 mm right upper lobe nodule image 59. this could be followed according to the Fleischner guidelines. Severe emphysematous changes are noted throughout the lungs the bony thorax is unremarkable in its appearance . The visualized portions of the upper abdomen are grossly unremarkable .IMPRESSIONSevere facet and changes with a 3 mm right upper lobe pulmonary nodule as above. No acute findings are seenElectronically signed by: WARREN MONTERO (January 18, 2020 15:52:32)
[2020-01-18] MEDS: CRESTOR TAB 10 MG PO SCH (20:59)
[2020-01-18] MEDS: COLACE CAP 100 MG PO SCH (20:59)
[2020-01-18] MEDS: NEURONTIN CAP 300 MG PO SCH (21:00)
[2020-01-18] MEDS: PriLOSEC PO SCH (21:00)
[2020-01-18] MEDS: ASPIRIN EC 81 MG PO SCH (21:01)
[2020-01-19] MEDS: PROVENTIL NEB TX 0.083% 2.5MG/ 3ML NEB SCH ×3 (00:40→08:12)
[2020-01-19] MEDS: NS 1000 ML 1,000 ML IV SCH (05:41)
[2020-01-19] MEDS: SOLU-Medrol 40 MG VIAL IVP SCH (05:42)
[2020-01-19 06:13] LABS: BASOPHILS % (AUTO) 0.1 % (0.2-1.0); HEMATOCRIT 35.6 % (36.0-47.0); HEMOGLOBIN 12.2 g/dL (12.0-16.0); LYMPHOCYTES # (AUTO) 0.5 X10^3/uL (1.3-2.9); MEAN CORPUSCULAR HGB CONC 34.4 g/dL (33.0-35.0); MEAN CORPUSCULAR VOLUME 95.9 fL (80.0-100.0); MEAN PLATELET VOLUME 8.5 fL (7.4-11.0); MONOCYTES # (AUTO) 0.5 x10^3/uL (0.3-0.8); NEUTROPHILS # (AUTO) 8.6 x10^3/uL (2.2-4.8); NEUTROPHILS % (AUTO) 89.9 % (42.0-75.0); PLATELET COUNT 229 X10^3/uL (150.0-450.0); RED BLOOD COUNT 3.71 X10^6/uL (3.5-5.4); RED CELL DISTRIBUTION WIDTH 13.2 % (11.6-16.5); WHITE BLOOD COUNT 9.6 X10^3/uL (3.6-10.0)
[2020-01-19 06:19] LABS: ALANINE AMINOTRANSFERASE 24 Units/L (12-78); ALBUMIN 3.1 g/dL (3.4-5.0); ALKALINE PHOSPHATASE 57 Units/L (46-116); ASPARTATE AMINO TRANSFERASE 21 Units/L (15-37); BLOOD UREA NITROGEN 16 mg/dL (7-18); CALCIUM 8.1 mg/dL (8.5-10.1); CARBON DIOXIDE 32.4 mmol/L (21-32); CHLORIDE 106 mmol/L (98-107); COR CA(FOR HYPOALB) 8.8 mg/dL (8.5-10.1); COR NA(FOR HYPERGLY) 143 mmol/L (136-145); CREATININE 0.63 mg/dL (0.55-1.02); MAGNESIUM 2.2 mg/dL (1.7-2.9); SODIUM 142 mmol/L (136-145); TOTAL PROTEIN 6.1 g/dL (6.4-8.2); eGFR NON BLACK RACES > 60 (>60)
--- NOTE | 2020-01-19 06:34 | RAD ---
HISTORYSOBSTUDYCHEST, 1 VIEWCOMPARISONMay 2019TECHNIQUEPortable chest x-rayFINDINGSHeart size and mediastinal contours are normal. Lungs are clear as are the pleural spaces. No free air or pneumothorax. No acute bony abonormality. Chronic interstitial lung changes with flattening of the diaphragm consistent with COPD is observed. There is parenchymal scarring within the left apex. Moderate scoliotic curvature is observed.IMPRESSIONSevere COPD with emphysematous changes and interstitial scarring.Moderate scoliosisElectronically signed by: ELIZABETH RAO (January 19, 2020 06:32:56)
[2020-01-19] MEDS: K-DUR TAB 20 MEQ PO PRN (08:34)
[2020-01-19] MEDS: LOPRESSOR TAB 50 MG PO SCH (08:34)
[2020-01-19] MEDS: ZITHROMAX INJ 500 MG VIAL 500 MG in D5W 250 ML IV 250 ML IV SCH (08:35)
[2020-01-19] MEDS ORDERED: MILK OF MAGNESIA PO PRN (08:46)
[2020-01-19 10:33] VITALS: BP 201/83
[2020-01-19] MEDS ORDERED: DIFLUCAN PO ONE (11:02)
--- NOTE | 2020-01-19 11:04 | W.DIS.FURT ---
Summary of Discharge Discharge Summary of Date Date of Exam: 01/19/20 Admission Date Date of Admission: 01/17/20 Admission Diagnosis Hospital Course: Ms. Abdullahi is a 64y/o female with a PMH of severe COPD on continuous home oxygen 2.5L and CPAP qHS presented with worsening SOB. She sees Dr. Funk and went to clinic on and was advised to go to ED but refused. She states her breathing got worse the next day and was directly admitted to the hospital. She smokes 2 cigarettes a day. She has been using albuterol more frequently and uses duonebs 4 times a day. She reports fever, no chills. She has hx of LE DVT years ago. On admission: CXR showed interstitial fibrosis and scarring with COPD changes. D-dimer: elevated 476 CRP: 5.20 LDH:329 CK: 257 Trop (-) AB.53///24 .COVID-19 negative. She was started on IV steroids and azithromax. She recieved duonebs. CT-PE was done due to elevated d-dimer and was negative for pulmonary embolism. Patient remained on her home oxygen 2L. She was stable for discharge on oral azithromax and Medrol dose pack. She will follow up with PCP as scheduled. Vital Signs: Vital Signs (72 hours) 01/17/20 13:15 01/17/20 14:54 01/17/20 15:12 Temperature 98.5 F Pulse Rate Pulse Rate [Right] 84 Respiratory Rate 42 H Blood Pressure 201/83 Blood Pressure [Left Arm] 163/74 O2 Sat by Pulse Oximetry 98 97 95 01/17/20 16:00 01/17/20 19:29 01/17/20 21:10 Temperature 98.3 F 98.6 F Pulse Rate 75 Pulse Rate [Right] 86 89 Respiratory Rate 42 H 26 H Blood Pressure Blood Pressure [Left Arm] 173/76 172/74 O2 Sat by Pulse Oximetry 96 92 L 98 01/17/20 23:54 01/18/20 03:29 01/18/20 08:00 Temperature 97.9 F 98.9 F 97.8 F Pulse Rate Pulse Rate [Right] 69 71 72 Respiratory Rate 22 20 18 Blood Pressure Blood Pressure [Left Arm] 141/68 147/65 170/74 O2 Sat by Pulse Oximetry 96 97 95 01/18/20 09:21 01/18/20 12:00 01/18/20 16:00 Temperature 97.9 F 98.0 F Pulse Rate 83 Pulse Rate [Right] 80 89 Respiratory Rate 18 18 Blood Pressure Blood Pressure [Left Arm] 134/60 141/65 O2 Sat by Pulse Oximetry 92 L 96 96 01/18/20 20:00 01/18/20 20:55 01/19/20 00:00 Temperature 97.5 F L 97.1 F L Pulse Rate 88 Pulse Rate [Right] 89 81 Respiratory Rate 22 20 Blood Pressure Blood Pressure [Left Arm] 159/69 154/70 O2 Sat by Pulse Oximetry 97 96 96 01/19/20 04:00 01/19/20 07:49 01/19/20 08:12 Temperature 97.6 F 98.4 F Pulse Rate 90 Pulse Rate [Right] 72 79 Respiratory Rate 23 18 Blood Pressure Blood Pressure [Left Arm] 145/65 184/87 O2 Sat by Pulse Oximetry 98 99 98 01/19/20 10:33 Temperature Pulse Rate 90 Pulse Rate [Right] Respiratory Rate Blood Pressure 201/83 Blood Pressure [Left Arm] O2 Sat by Pulse Oximetry 98 Labs: Laboratory Last Values WBC 9.6 X10^3/uL (3.6-10.0) 01/19/20 05:24 RBC 3.71 X10^6/uL (3.5-5.4) 01/19/20 05:24 Hgb 12.2 g/dL (12.0-16.0) 01/19/20 05:24 Hct 35.6 % (36.0-47.0) L 01/19/20 05:24 MCV 95.9 fL (80.0-100.0) 01/19/20 05:24 MCH 33.0 pg (27.0-34.0) 01/19/20 05:24 MCHC 34.4 g/dL (33.0-35.0) 01/19/20 05:24 RDW 13.2 % (11.6-16.5) 01/19/20 05:24 Plt Count 229 X10^3/uL (150.0-450.0) 01/19/20 05:24 MPV 8.5 fL (7.4-11.0) 01/19/20 05:24 Neut % (Auto) 89.9 % (42.0-75.0) H 01/19/20 05:24 Lymph % (Auto) 5.0 % (21.0-51.0) L 01/19/20 05:24 [place] % (Auto) 5.0 % (0.0-13.0) 01/19/20 05:24 Eos % (Auto) 0.0 % (0.9-2.9) L 01/19/20 05:24 Baso % (Auto) 0.1 % (0.2-1.0) L 01/19/20 05:24 Neut # (Auto) 8.6 x10^3/uL (2.2-4.8) H 01/19/20 05:24 Lymph # (Auto) 0.5 X10^3/uL (1.3-2.9) L 01/19/20 05:24 [place] # (Auto) 0.5 x10^3/uL (0.3-0.8) 01/19/20 05:24 Eos # (Auto) 0.0 x10^3/uL (0.0-0.2) 01/19/20 05:24 Baso # (Auto) 0.0 X10^3/uL (0.0-0.1) 01/19/20 05:24 Absolute Nucleated RBC 0.0 /100WBC 01/19/20 05:24 PT 13.4 SECONDS (11.8-14.3) 01/17/20 13:55 INR Target Range - 01/17/20 13:55 INR 1.05 (0.8-1.3) 01/17/20 13:55 APTT 29.9 SECONDS (22.9-36.5) 01/17/20 13:55 PTT Comment - 01/17/20 13:55 D-Dimer 476 ng/mL (0-400) H* 01/17/20 13:55 Sample Site Rb 01/17/20 13:56 ABG pH 7.530 (7.35-7.45) H 01/17/20 13:56 ABG pCO2 29.0 mmHg (35.0-45.0) L 01/17/20 13:56 ABG pO2 82.0 mmHg (80.0-100.0) 01/17/20 13:56 ABG HCO3 24.2 mmol/L (22-26) 01/17/20 13:56 ABG O2 Saturation 97.0 % (90-100) 01/17/20 13:56 ABG Base Excess 2.2 mmol/L (-2.0-2.0) H 01/17/20 13:56 Xavier Test Na 01/17/20 13:56 A-a Gradient 81.0 mmHg 01/17/20 13:56 FiO2 28.0 01/17/20 13:56 Blood Gas Comments Kayla well cb 01/17/20 13:56 Sodium 142 mmol/L (136-145) 01/19/20 05:24 Corrected Sodium 143 mmol/L (136-145) 01/19/20 05:24 Potassium 3.7 mmol/L (3.5-5.1) 01/19/20 05:24 Chloride 106 mmol/L (98-107) 01/19/20 05:24 Carbon Dioxide 32.4 mmol/L (21-32) H 01/19/20 05:24 BUN 16 mg/dL (7-18) 01/19/20 05:24 Creatinine 0.63 mg/dL (0.55-1.02) 01/19/20 05:24 Est GFR (MDRD) Af Amer > 60 (>60) 01/19/20 05:24 Est GFR (MDRD) Non-Af > 60 (>60) 01/19/20 05:24 Glucose 123 mg/dL (65-99) H 01/19/20 05:24 Calcium 8.1 mg/dL (8.5-10.1) L 01/19/20 05:24 Corrected Calcium 8.8 mg/dL (8.5-10.1) 01/19/20 05:24 Magnesium 2.2 mg/dL (1.7-2.9) 01/19/20 05:24 Ferritin 238 ng/mL (8-252) 01/17/20 13:55 Total Bilirubin 0.30 mg/dL (0.2-1.0) 01/19/20 05:24 AST 21 Units/L (15-37) 01/19/20 05:24 ALT 24 Units/L (12-78) 01/19/20 05:24 Alkaline Phosphatase 57 Units/L (46-116) 01/19/20 05:24 Lactate Dehydrogenase 329 Units/L (81-234) H 01/17/20 13:55 Creatine Kinase 139 Units/L (26-192) 01/18/20 04:36 CK-MB (CK-2) 7.1 ng/mL (0-4.0) H* 01/18/20 04:36 CK/CKMB % Calc 5.1 % (<4) 01/18/20 04:36 Troponin I < 0.02 ng/mL (0-1.5) 01/18/20 04:36 C-Reactive Protein 3.60 mg/L (0-3.0) H 01/18/20 04:36 Total Protein 6.1 g/dL (6.4-8.2) L 01/19/20 05:24 Albumin 3.1 g/dL (3.4-5.0) L 01/19/20 05:24 Globulin 3.0 g/dL (2.5-4.5) 01/19/20 05:24 Albumin/Globulin Ratio 1.0 Ratio (1.1-2.1) L 01/19/20 05:24 Specimen Type Clean catch urine 01/17/20 12:57 Urine Color Yellow (YELLOW) 01/17/20 12:57 Urine Appearance Clear (CLEAR) 01/17/20 12:57 Urine pH 6.5 (5.0 - 8.0) 01/17/20 12:[address] [place] 1.015 (1.000-1.030) 01/17/20 12:57 Urine Protein Negative (NEGATIVE) 01/17/20 12:57 Urine Glucose (UA) Negative (NEGATIVE) 01/17/20 12:57 Urine Ketones Negative (NEGATIVE) 01/17/20 12:57 Urine Occult Blood Negative (NEGATIVE) 01/17/20 12:57 Urine Nitrite Negative (NEGATIVE) 01/17/20 12:57 Urine Bilirubin Negative (NEGATIVE) 01/17/20 12:57 Urine Urobilinogen Normal (NORMAL) 01/17/20 12:57 Ur Leukocyte Esterase Negative (NEGATIVE) 01/17/20 12:57 SARS-CoV-2 (PCR) Negative (NEGATIVE) 01/17/20 12:00 Reason For Visit: SOB,FEVER,COUGH,COPD Discharge Date Discharge Date: 01/19/20 Discharge Diagnosis All Active Problems (Updated 01/18/20 @ 11:14 by Jazzy Damon) Protein calorie malnutrition (Acute) Elevated d-dimer (Acute) Chest pain (Acute) Acute dyspnea (Acute) COPD (chronic obstructive pulmonary disease) (Acute) Hypertensive urgency (Acute) Acute hypokalemia (Acute) COPD with acute exacerbation (Acute) Hypokalemia (Acute) Hyperglycemia (Acute) Tobacco abuse (Acute) Plan of Treatment: Continue with present treatment and follow up plan. Pt is to keep follow up appointment as instructed and take medications as ordered. Discharge Medications Discharge Medications: No Known Drug Allergies Allergy (Verified 04/18/19 23:01) CONTINUE taking the following medications aspirin [Aspirin Low Dose] 81 mg PO HS 01/17/20 [History] New Prescriptions azithromycin 250 mg PO DAILY 3 Days #3 tab 01/19/20 [Rx] methylprednisolone [Medrol (Iraj)] See Rx Instructions .ROUTE .COMPLEX #21 ea 01/19/20 [Rx] Follow up and Referral Follow Up: 1 Week (PCP) Discharge Disposition Discharge Disposition: Home Discharge Condition: Stable
[2020-01-19] MEDS ORDERED: DIFLUCAN ONE (11:16)
== END 2020-01-19 11:35 | disposition home or self-care (01) ==
LOC: OBS → MED/SURG 13:16
PROVIDERS: ADMIT Internal Medicine; ATTEND Internal Medicine
DX: M41.9 Scoliosis, unspecified; R50.9 Fever, unspecified; Z11.59 Encounter for screening for other viral diseases; Z99.81 Dependence on supplemental oxygen; R79.1 Abnormal coagulation profile; J44.1 Chronic obstructive pulmonary disease with (acute) exacerbation; Z72.0 Tobacco use; R06.02 Shortness of breath; E87.6 Hypokalemia; R79.89 Other specified abnormal findings of blood chemistry; R91.1 Solitary pulmonary nodule; R94.31 Abnormal electrocardiogram [ECG] [EKG]
CPT/HCPCS: 36415; 36600; 71010; 71045; 71275; 80053; 81003; 82550; 82553; 82728; 82803; 83615; 83735; 84484; 85025; 85378; 85610; 85730; 86140; 87040; 87070; 87205; 87635; 93005; 94640; 94760; 96360; 96361; 96374; A4216; A4222; A7030; G0378; J0456; J2920; J3475; J7030; J7060; J7613

== ENCOUNTER 2020-10-15 13:20 | Inpatient (IN) ==
[2020-10-15] MEDS ORDERED: DUONEB 0.5 MG/3 MG (3 mL) NEB SCH (18:30)
[2020-10-15 18:49] LABS: ABG BASE EXCESS 14.9 mmol/L (-2.0-2.0)
[2020-10-15 18:50] LABS: ABG HCO3 41.3 mmol/L (22-26)
--- NOTE | 2020-10-15 18:59 | RAD ---
HISTORYPT. C/O SHORTNESS OF BREATH WHICH WORSENED LAST NIGHT.SKYLER VELARDE/LAT [id number]/2020FINDINGSLungs are hyperinflated with emphysematous changes. No superimposed pneumonia. No pleural effusion or pneumothorax.Heart size is normal. Vascular calcifications are present compatible with atherosclerosis.Mild scoliosis.IMPRESSION1. No acute finding2. EmphysemaElectronically signed by: Dandre Landry (Oct 15, 2020 18:57:46)
[2020-10-15] MEDS ORDERED: SOLU-Medrol 40 MG VIAL ONE (19:04)
[2020-10-15] MEDS ORDERED: FORTAZ or TAZICEF VIAL INJ ONE ×2 (19:04→22:27)
[2020-10-15] MEDS ORDERED: NS 100 ML IV + SPIKE MINIBAG* 100 ML IV ONE ×2 (19:04→22:27)
[2020-10-15] MEDS ORDERED: ROBITUSSIN DM ONE ×2 (19:04→22:26)
[2020-10-15] MEDS ORDERED: NS 1/2 1000 ML IV 1,000 ML IV ONE (19:05)
[2020-10-15] MEDS: FORTAZ or TAZICEF VIAL INJ 1 G in NS 100 ML IV + SPIKE MINIBAG* 100 ML IV SCH ×3 (19:05→22:32)
[2020-10-15] MEDS ORDERED: LEVAQUIN PREMIX IV 500 MG 500 MG/100 ML BAG IV ONE (19:05)
[2020-10-15] MEDS: ROBITUSSIN DM PO SCH ×3 (19:07→22:32)
[2020-10-15 19:08] LABS: BASOPHILS % (AUTO) 0.2 % (0.2-1.0); EOSINOPHILS % (AUTO) 0.2 % (0.9-2.9); HEMATOCRIT 46.5 % (36.0-47.0); HEMOGLOBIN 15.9 g/dL (12.0-16.0); LYMPHOCYTES # (AUTO) 0.2 X10^3/uL (1.3-2.9); MEAN CORPUSCULAR HEMOGLOBIN 32.1 pg (27.0-34.0); MEAN CORPUSCULAR HGB CONC 34.2 g/dL (33.0-35.0); MEAN CORPUSCULAR VOLUME 93.9 fL (80.0-100.0); MEAN PLATELET VOLUME 8.2 fL (7.4-11.0); MONOCYTES # (AUTO) 0.2 x10^3/uL (0.3-0.8); MONOCYTES % (AUTO) 0.9 % (0.0-13.0); NEUTROPHILS # (AUTO) 18.1 x10^3/uL (2.2-4.8); NEUTROPHILS % (AUTO) 97.7 % (42.0-75.0); PLATELET COUNT 214 X10^3/uL (150.0-450.0); RED BLOOD COUNT 4.96 X10^6/uL (3.5-5.4); RED CELL DISTRIBUTION WIDTH 13.9 % (11.6-16.5); WHITE BLOOD COUNT 18.5 X10^3/uL (3.6-10.0)
[2020-10-15] MEDS: NS 1/2 1000 ML IV 1,000 ML IV SCH (19:09)
[2020-10-15] MEDS: LEVAQUIN PREMIX IV 500 MG 500 MG/100 ML BAG IV SCH (19:10)
[2020-10-15 19:21] LABS: BLOOD UREA NITROGEN 13 mg/dL (7-18); CALCIUM 9.5 mg/dL (8.5-10.1); CARBON DIOXIDE 38.3 mmol/L (21-32); CHLORIDE 95 mmol/L (98-107); CREATININE 0.79 mg/dL (0.55-1.02); eGFR NON BLACK RACES > 60 (>60)
[2020-10-15 19:24] LABS: ALANINE AMINOTRANSFERASE 28 Units/L (12-78); ALBUMIN 3.7 g/dL (3.4-5.0); ALKALINE PHOSPHATASE 97 Units/L (46-116); ASPARTATE AMINO TRANSFERASE 28 Units/L (15-37); TOTAL PROTEIN 7.3 g/dL (6.4-8.2)
[2020-10-15 19:26] LABS: COR NA(FOR HYPERGLY) 142 mmol/L (136-145)
[2020-10-15 19:27] LABS: SODIUM 140 mmol/L (136-145)
[2020-10-15 19:38] LABS: PLATELET MORPHOLOGY COMMENT NORMAL (NORMAL)
[2020-10-15] MEDS ORDERED: DUONEB 0.5 MG/3 MG (3 mL) NEB ONE (19:38)
[2020-10-15] MEDS ORDERED: PULMICORT NEB TX 0.5 MG NEB ONE (19:38)
[2020-10-15] MEDS: VSL#3 PO SCH (19:40)
[2020-10-15] MEDS: PULMICORT NEB TX 0.5 MG NEB SCH (20:05)
[2020-10-15] MEDS: DUONEB 0.5 MG/3 MG (3 mL) NEB SCH (20:05)
[2020-10-15] MEDS: SOLU-Medrol 40 MG VIAL IVP SCH (21:37)
[2020-10-16] MEDS: DUONEB 0.5 MG/3 MG (3 mL) NEB SCH ×6 (00:29→20:28)
[2020-10-16] MEDS: TUSSIONEX PENNKINETIC SUSP PO PRN (02:13)
[2020-10-16] MEDS ORDERED: KLOR-CON PO PRN (03:12)
[2020-10-16] MEDS ORDERED: POTASSIUM CHLORIDE LIQ 20 MEQ UDC PO PRN (03:12)
[2020-10-16] MEDS ORDERED: MICRO K EXTEN CAP 10 MEQ PO PRN (03:12)
[2020-10-16] MEDS ORDERED: POTASSIUM CHL 60 MEQ/NS 0.45% 500 ML IV PRN (03:12)
[2020-10-16] MEDS ORDERED: POTASSIUM CHL 40 MEQ/NS 0.45% 500 ML IV PRN (03:12)
[2020-10-16] MEDS ORDERED: K-RIDER 10 MEQ/NS 100 ML 10 MEQ/100 ML BAG IV PRN (03:12)
[2020-10-16] MEDS: SOLU-Medrol 40 MG VIAL IVP SCH ×3 (05:30→22:22)
[2020-10-16] MEDS: FORTAZ or TAZICEF VIAL INJ 1 G in NS 100 ML IV + SPIKE MINIBAG* 100 ML IV SCH ×3 (05:30→22:21)
[2020-10-16 06:24] LABS: BASOPHILS # (AUTO) 0.1 X10^3/uL (0.0-0.1); BASOPHILS % (AUTO) 0.5 % (0.2-1.0); HEMATOCRIT 44.3 % (36.0-47.0); HEMOGLOBIN 15.2 g/dL (12.0-16.0); LYMPHOCYTES # (AUTO) 0.3 X10^3/uL (1.3-2.9); MEAN CORPUSCULAR HGB CONC 34.2 g/dL (33.0-35.0); MEAN CORPUSCULAR VOLUME 93.6 fL (80.0-100.0); MEAN PLATELET VOLUME 8.7 fL (7.4-11.0); MONOCYTES # (AUTO) 0.6 x10^3/uL (0.3-0.8); MONOCYTES % (AUTO) 3.7 % (0.0-13.0); NEUTROPHILS # (AUTO) 14.1 x10^3/uL (2.2-4.8); NEUTROPHILS % (AUTO) 93.8 % (42.0-75.0); PLATELET COUNT 206 X10^3/uL (150.0-450.0); RED BLOOD COUNT 4.73 X10^6/uL (3.5-5.4); RED CELL DISTRIBUTION WIDTH 13.8 % (11.6-16.5)
[2020-10-16 06:41] LABS: ALANINE AMINOTRANSFERASE 33 Units/L (12-78); ALBUMIN 3.5 g/dL (3.4-5.0); ALKALINE PHOSPHATASE 89 Units/L (46-116); ASPARTATE AMINO TRANSFERASE 34 Units/L (15-37); BLOOD UREA NITROGEN 11 mg/dL (7-18); CALCIUM 9.1 mg/dL (8.5-10.1); CARBON DIOXIDE 38.5 mmol/L (21-32); CHLORIDE 95 mmol/L (98-107); COR NA(FOR HYPERGLY) 140 mmol/L (136-145); SODIUM 139 mmol/L (136-145); eGFR NON BLACK RACES > 60 (>60)
--- NOTE | 2020-10-16 06:41 | RAD ---
HISTORYShortness of breathSTUDYChest AP [id number]/2021FINDINGSThe heart is within normal limits in size. The pradip are normal. The lungs are markedly hyperinflated consistent with COPD in the appropriate clinical setting. No acute alveolar infiltrates or pleural effusions are identified. Bony thorax is unremarkable.IMPRESSIONCOPDNo acute infiltratesElectronically signed by: NATASHA PEACOCK (Oct 16, 2020 06:39:43)
[2020-10-16 06:48] LABS: PLATELET MORPHOLOGY COMMENT NORMAL (NORMAL)
[2020-10-16] MEDS: PULMICORT NEB TX 0.5 MG NEB SCH ×2 (09:05→20:28)
[2020-10-16] MEDS: VSL#3 PO SCH (09:06)
[2020-10-16] MEDS: LEVAQUIN PREMIX IV 500 MG 500 MG/100 ML BAG IV SCH (09:06)
[2020-10-16] MEDS: ROBITUSSIN DM PO SCH ×4 (09:06→20:18)
[2020-10-16] MEDS: LOVENOX INJ 40 MG SYR SC SCH ×2 (09:08→09:25)
--- NOTE | 2020-10-16 11:19 | DR.H&P ---
H&P - History & Physical for Day of: H&P Date: 10/15/20 - Chief Complaint Chief Complaint: SHORTNESS OF BREATH, COUGH - History of Present Illness History of Present Illness: IS A 64 YEAR OLD PATIENT OF OURS. SHE PRESENTED TO THE OFFICE TODAY WITH COMPLAINTS OF SHORTNESS OF BREATH AND COUGH. SYMPTOMS STARTED TWO DAYS PRIOR TO VISIT, BUT HAD PROGRESSIVELY GOTTEN WORSE. PATIENT DOES HAVE A KNOW HISTORY OF COPD. SHE DENIES CHEST PAIN OR FEVER. SHE UTILIZES OXYGEN VIA NASAL CANNULA AT HOME, USUALLY AT 2.5 LITERS/MINUTE. WHILE IN THE OFFICE, HER SATURATIONS DROPPED TO 77% ON OXYGEN. HER OXYGEN WAS INCREASED TO 4 LITERS/MINUTE. SATURATIONS THEN INCREASED TO 90%. AUSCULTATION OF LUNG WALLACE REVEALED SCATTERED WHEEZING. SHE WAS ADMITTED TO THE HOSPITAL FOR FURTHER EVALUATION AND TREATMENT OF COPD EXACERBATION WITH ACUTE BRONCHITIS. ON ARRIVAL TO THE HOSPITAL, VITALS WERE 98.9-109-24-91%-159/72. LABS WERE OBTAINED. ABNORMAL LAB VALUES INCLUDE THE FOLLOWING: WBC 18.5, POTASSIUM 2.7, CHLORIDE 95, CARBON DIOXIDE 38.3, GLUCOSE 188. COVID-19 NEGATIVE. AN ABG WAS OBTAINED AND REVEALED: PH 7.460, PC02 58, P02 68, HC03 41.3, 02 SAT 94, BASE EXCESS 14.9, A-A GRADIENT 88, FI02 32. BLOOD AND SPUTUM CULTURES WERE SET UP. A CHEST XRAY WAS OBTAINED AND REVEALED: Lungs are hyperinflated with emphysematous changes. No superimposed pneumonia. No pleural effusion or pneumothorax. Heart size is normal. Vascular calcifications are present compatible with atherosclerosis. Mild scoliosis. SHE WAS STARTED ON 1/2NS AT 75 ML/HR, FORTAZ 1G IV Q8H, LEVAQUIN 500MG IV DAILY, LOVENOX 40MG SC DAILY, ROBITUSSIN DM 10 ML PO QID, TUSSIONEX 5ML PO Q12H PRN, SOLU-MEDROL 40MG IV Q8H, DUONEBS Q4H, PULMICORT NEBS BID, AND THE POTASSIUM AND MAGNESIUM PROTOCOLS. OTHERWISE, WE PLAN TO FOLLOW UP WITH AM LABS AND CHEST XRAY AND CONTINUE TO MONITOR. TIME SPENT ON CLINICAL ASSESSMENT, REVIEWING LABS AND IMAGING, DECISION MAKING, AND DOCUMENTATION GREATER THAN 75 MINUTES. - Past Medical History Past Medical History: Hypertension, Dyslipidemia, COPD, GERD, Sleep Apnea - Past Surgical History Surgical History: - Social History Does patient currently use any type of tobacco product: Yes Have you used tobacco products in the last 12 months: Yes Type of Tobacco Use: Cigarettes Does any household member use tobacco: No Alcohol Use: None Drug Use: None - Medications Home Medications: No Known Drug Allergies Allergy (Verified 04/18/19 23:01) CONTINUE taking the following medications amlodipine 10 mg PO DAILY 10/15/20 [History] gabapentin 300 mg PO HS 10/15/20 [History] prednisone 10 mg PO BID 10/15/20 [History] tizanidine 4 mg PO BID 10/15/20 [History] - Review of Systems Constitutional: Weakness Eyes: No Symptoms Reported ENT: No Symptoms Reported Respiratory: See HPI, Cough, Shortness of Breath, Wheezing Cardiovascular: No Symptoms Reported Gastrointestinal: No Symptoms Reported Genitourinary: No Symptoms Reported Musculoskeletal: No Symptoms Reported Skin: No Symptoms Reported Neurological: Weakness - Physical Exam Vital Signs: Temperature 98.2 F Pulse Rate [Left Radial] 24 Pulse Rate 95 Respiratory Rate 24 Blood Pressure [Left Arm] 158/73 Blood Pressure 165/76 O2 Sat by Pulse Oximetry 98 Oriented: Normal Eyes: Normal Ear: Normal Nose: Normal Throat: Normal Respiratory: Wheezes Throughout Cardiovascular: Normal : Normal Auscultation: Bowel Sounds: Normal Palpation: Normal Tenderness: Normal Skin: Normal Musculoskeletal: Normal Psychiatric: Normal Mood Description: Calm Affect: Normal Speech Pattern: Clear - Assessment/Plan (1) COPD with acute exacerbation Status: Acute Plan: ADMIT, 1/2NS AT 75 ML/HR, FORTAZ 1G IV Q8H, LEVAQUIN 500MG IV DAILY, LOVENOX 40MG SC DAILY, ROBITUSSIN DM 10 ML PO QID, TUSSIONEX 5ML PO Q12H PRN, SOLU-MEDROL 40MG IV Q8H, DUONEBS Q4H, PULMICORT NEBS BID, AND THE POTASSIUM AND MAGNESIUM PROTOCOLS (2) Acute bronchitis Qualifiers: Bronchitis organism: unspecified organism Qualified Code(s): J20.9 - Acute bronchitis, unspecified Status: Acute (3) Hypokalemia Status: Acute - Allergies Allergies/Adverse Reactions: Allergies Allergy/AdvReac Type Severity Reaction Status Date / Time No Known Drug Allergies Allergy Verified 04/18/19 23:01
[2020-10-16] MEDS: K-DUR TAB 20 MEQ PO PRN ×2 (11:49→16:51)
[2020-10-16 11:59] VITALS: BMI 11.8
[2020-10-16] MEDS: NORVASC TAB 10 MG PO SCH (14:00)
[2020-10-16] MEDS: ZANAFLEX PO SCH ×2 (14:00→20:17)
[2020-10-16] MEDS: TOPROL XL PO SCH (14:00)
[2020-10-16] MEDS ORDERED: NS 1/2 1000 ML IV 1,000 ML IV ONE ×2 (14:09→14:30)
[2020-10-16] MEDS: NS 1/2 1000 ML IV 1,000 ML IV SCH ×2 (14:15→14:20)
[2020-10-16] MEDS: NEURONTIN CAP 300 MG PO SCH (20:18)
[2020-10-16] MEDS: PriLOSEC PO SCH (20:18)
[2020-10-16] MEDS: ASPIRIN EC 81 MG PO SCH (20:19)
[2020-10-16] MEDS: CRESTOR TAB 10 MG PO SCH (20:19)
[2020-10-17] MEDS: DUONEB 0.5 MG/3 MG (3 mL) NEB SCH ×6 (00:02→20:15)
[2020-10-17] MEDS: TUSSIONEX PENNKINETIC SUSP PO PRN (01:08)
[2020-10-17] MEDS: FORTAZ or TAZICEF VIAL INJ 1 G in NS 100 ML IV + SPIKE MINIBAG* 100 ML IV SCH (05:28)
[2020-10-17] MEDS: SOLU-Medrol 40 MG VIAL IVP SCH ×3 (05:29→22:00)
[2020-10-17] MEDS ORDERED: NS 1/2 1000 ML IV 1,000 ML IV ONE (05:39)
[2020-10-17] MEDS: NS 1/2 1000 ML IV 1,000 ML IV SCH ×3 (05:41→23:00)
--- NOTE | 2020-10-17 05:44 | RAD ---
HISTORYSOB COPDSTUDYAP chestCOMPARISONFebruary 2020FINDINGSContinued normal heart size with symmetric pulmonary hyperaeration. There is no evidence for developing infiltrate, edema, pneumothorax or pleural fluid. Slight chronic coarsening of the interstitium.IMPRESSIONNo change. Pulmonary hyperinflation consistent with COPD. No acute component demonstrated.Electronically signed by: JERRY HANLEY (Oct 17, 2020 05:43:25)
[2020-10-17 06:36] LABS: ALANINE AMINOTRANSFERASE 35 Units/L (12-78); ALBUMIN 2.8 g/dL (3.4-5.0); ALKALINE PHOSPHATASE 72 Units/L (46-116); ASPARTATE AMINO TRANSFERASE 28 Units/L (15-37); BLOOD UREA NITROGEN 11 mg/dL (7-18); CALCIUM 8.5 mg/dL (8.5-10.1); CARBON DIOXIDE 34.9 mmol/L (21-32); CHLORIDE 102 mmol/L (98-107); COR CA(FOR HYPOALB) 9.5 mg/dL (8.5-10.1); COR NA(FOR HYPERGLY) 140 mmol/L (136-145); CREATININE 0.53 mg/dL (0.55-1.02); SODIUM 139 mmol/L (136-145); TOTAL PROTEIN 5.8 g/dL (6.4-8.2); eGFR NON BLACK RACES > 60 (>60)
[2020-10-17 06:41] LABS: BASOPHILS % (AUTO) 0.1 % (0.2-1.0); HEMATOCRIT 38.7 % (36.0-47.0); HEMOGLOBIN 13.1 g/dL (12.0-16.0); LYMPHOCYTES # (AUTO) 0.4 X10^3/uL (1.3-2.9); LYMPHOCYTES % (AUTO) 2.7 % (21.0-51.0); MEAN CORPUSCULAR HEMOGLOBIN 31.7 pg (27.0-34.0); MEAN CORPUSCULAR HGB CONC 33.8 g/dL (33.0-35.0); MEAN CORPUSCULAR VOLUME 93.7 fL (80.0-100.0); MEAN PLATELET VOLUME 8.4 fL (7.4-11.0); MONOCYTES # (AUTO) 0.4 x10^3/uL (0.3-0.8); MONOCYTES % (AUTO) 2.9 % (0.0-13.0); NEUTROPHILS # (AUTO) 12.3 x10^3/uL (2.2-4.8); NEUTROPHILS % (AUTO) 94.3 % (42.0-75.0); PLATELET COUNT 196 X10^3/uL (150.0-450.0); RED BLOOD COUNT 4.13 X10^6/uL (3.5-5.4); RED CELL DISTRIBUTION WIDTH 13.8 % (11.6-16.5); WHITE BLOOD COUNT 13.1 X10^3/uL (3.6-10.0)
[2020-10-17 06:51] LABS: PLATELET MORPHOLOGY COMMENT NORMAL (NORMAL)
[2020-10-17] MEDS: LOVENOX INJ 40 MG SYR SC SCH (09:05)
[2020-10-17] MEDS: PULMICORT NEB TX 0.5 MG NEB SCH ×2 (09:10→20:15)
[2020-10-17] MEDS: LEVAQUIN PREMIX IV 500 MG 500 MG/100 ML BAG IV SCH (09:16)
[2020-10-17] MEDS: NORVASC TAB 10 MG PO SCH (09:44)
[2020-10-17] MEDS: TOPROL XL PO SCH (09:44)
[2020-10-17] MEDS: ROBITUSSIN DM PO SCH ×4 (09:44→22:00)
[2020-10-17] MEDS: ZANAFLEX PO SCH ×2 (09:45→22:00)
[2020-10-17] MEDS: VSL#3 PO SCH (09:45)
--- NOTE | 2020-10-17 11:17 | PCM.PROG ---
Progress Note Progress Note for Day of Date of Exam: 10/17/20 Subjective Subjective: Patient seen at bedside, no events overnight. She states she is feeling better this morning. Her breathing has improved. She is coughing some sputum. She is currently on 3.5L NC, she sues 2.5L at home. Denies fever or chills. Denies GI Sx. Labs: WBC 13.1 CXR: suggestive of COPD, no infiltrate noted Sputum: normal toni Blood Cx: negative Plan: Wean O2 as tolerated, continue IS, bronchodilators. Will DC Fortaz, continue Levaquin. Continue solumedrol. Monitor AM labs. Past Medical Family Social History Past Med/Fam/Surg Hx: No changes since H&P Allergies: Allergies No Known Drug Allergies Allergy (Verified 04/18/19 23:01) Review of Systems ROS: No change since H&P Vital Signs and I&O's Vital Signs: Temperature 99.3 F Pulse Rate [Left Radial] 97 Pulse Rate 96 Respiratory Rate 24 Blood Pressure [Left Arm] 137/63 Blood Pressure 165/76 O2 Sat by Pulse Oximetry 92 Intake and Output: Intake & Output 10/14/20 10/15/20 10/16/20 10/17/20 23:59 23:59 23:59 23:59 Intake Total 780 / 780 3070 / 3070 1171 / 1171 Output Total 1200 / 1200 Balance 780 / 780 1870 / 1870 1171 / 1171 Physical Exam Oriented: Normal Eyes: Normal Ear: Normal Nose: Normal Throat: Normal Respiratory: Generalized and Diminished Cardiovascular: Normal Auscultation: Bowel Sounds: Normal Tenderness: Normal Skin: Normal Musculoskeletal: Normal Psychiatric: Normal Mood Description: Calm Affect: Normal Speech Pattern: Clear and Appropriate Laboratory and Diagnostics Result Diagrams: 10/17/20 05:55 10/17/20 05:55 Labs: 10/15/20 19:22 Sputum - Expectorated Sputum Sputum Culture - Final 10/15/20 19:22 Sputum - Expectorated Sputum - Final 10/15/20 18:51 Blood Blood Culture - Preliminary 10/15/20 18:39 Blood Blood Culture - Preliminary Laboratory WBC 13.1 X10^3/uL (3.6-10.0) H 10/17/20 05:55 RBC 4.13 X10^6/uL (3.5-5.4) 10/17/20 05:55 Hgb 13.1 g/dL (12.0-16.0) D 10/17/20 05:55 Hct 38.7 % (36.0-47.0) 10/17/20 05:55 MCV 93.7 fL (80.0-100.0) 10/17/20 05:55 MCH 31.7 pg (27.0-34.0) 10/17/20 05:55 MCHC 33.8 g/dL (33.0-35.0) 10/17/20 05:55 RDW 13.8 % (11.6-16.5) 10/17/20 05:55 Plt Count 196 X10^3/uL (150.0-450.0) 10/17/20 05:55 Plt Count Comment Adequate (ADEQUATE) 10/17/20 05:55 MPV 8.4 fL (7.4-11.0) 10/17/20 05:55 Neut % (Auto) 94.3 % (42.0-75.0) H 10/17/20 05:55 Lymph % (Auto) 2.7 % (21.0-51.0) L 10/17/20 05:55 [place] % (Auto) 2.9 % (0.0-13.0) 10/17/20 05:55 Eos % (Auto) 0.0 % (0.9-2.9) L 10/17/20 05:55 Baso % (Auto) 0.1 % (0.2-1.0) L 10/17/20 05:55 Neut # (Auto) 12.3 x10^3/uL (2.2-4.8) H 10/17/20 05:55 Lymph # (Auto) 0.4 X10^3/uL (1.3-2.9) L 10/17/20 05:55 [place] # (Auto) 0.4 x10^3/uL (0.3-0.8) 10/17/20 05:55 Eos # (Auto) 0.0 x10^3/uL (0.0-0.2) 10/17/20 05:55 Baso # (Auto) 0.0 X10^3/uL (0.0-0.1) 10/17/20 05:55 Absolute Nucleated RBC 0.0 /100WBC 10/17/20 05:55 Total Counted 100 10/17/20 05:55 Neutrophils % (Manual) 96 % (39-76) H 10/17/20 05:55 Lymphocytes % (Manual) 3 % (13-43) L 10/17/20 05:55 Monocytes % (Manual) 1 % (4-9) L 10/17/20 05:55 Plt Morphology Comment Normal (NORMAL) 10/17/20 05:55 RBC Morphology Normal (NORMAL) 10/17/20 05:55 Sample Site Rb 10/15/20 18:40 ABG pH 7.460 (7.35-7.45) H 10/15/20 18:40 ABG pCO2 58.0 mmHg (35.0-45.0) H* 10/15/20 18:40 ABG pO2 68.0 mmHg (80.0-100.0) L 10/15/20 18:40 ABG HCO3 41.3 mmol/L (22-26) H* 10/15/20 18:40 ABG O2 Saturation 94.0 % (90-100) 10/15/20 18:40 ABG Base Excess 14.9 mmol/L (-2.0-2.0) H 10/15/20 18:40 Xavier Test N/a 10/15/20 18:40 A-a Gradient 88.0 mmHg 10/15/20 18:40 FiO2 32.0 10/15/20 18:40 Blood Gas Comments Pt albert well 10/15/20 18:40 Sodium 139 mmol/L (136-145) 10/17/20 05:55 Corrected Sodium 140 mmol/L (136-145) 10/17/20 05:55 Potassium 4.2 mmol/L (3.5-5.1) 10/17/20 05:55 Chloride 102 mmol/L (98-107) 10/17/20 05:55 Carbon Dioxide 34.9 mmol/L (21-32) H 10/17/20 05:55 BUN 11 mg/dL (7-18) 10/17/20 05:55 Creatinine 0.53 mg/dL (0.55-1.02) L 10/17/20 05:55 Est GFR (MDRD) Af Amer > 60 (>60) 10/17/20 05:55 Est GFR (MDRD) Non-Af > 60 (>60) 10/17/20 05:55 Glucose 148 mg/dL (65-99) H 10/17/20 05:55 Calcium 8.5 mg/dL (8.5-10.1) 10/17/20 05:55 Corrected Calcium 9.5 mg/dL (8.5-10.1) 10/17/20 05:55 Magnesium 1.7 mg/dL (1.7-2.9) 10/17/20 05:55 Total Bilirubin 0.50 mg/dL (0.2-1.0) 10/17/20 05:55 AST 28 Units/L (15-37) 10/17/20 05:55 ALT 35 Units/L (12-78) 10/17/20 05:55 Alkaline Phosphatase 72 Units/L (46-116) 10/17/20 05:55 Total Protein 5.8 g/dL (6.4-8.2) L 10/17/20 05:55 Albumin 2.8 g/dL (3.4-5.0) L 10/17/20 05:55 Globulin 3.0 g/dL (2.5-4.5) 10/17/20 05:55 Albumin/Globulin Ratio 0.9 Ratio (1.1-2.1) L 10/17/20 05:55 SARS CoV-2 RNA Rapid [place] Negative (NEGATIVE) 10/15/20 16:17 Plan (1) COPD with acute exacerbation: Status: Acute (2) Acute bronchitis: Status: Acute Qualifiers: Bronchitis organism: unspecified organism Qualified Code(s): J20.9 - Acute bronchitis, unspecified (3) Hypokalemia: Status: Acute
[2020-10-17] MEDS: MAGNESIUM SULFATE 1 GRAM/100 mL PREMIX 1 GM/100 ML BAG IV PRN ×2 (11:31→15:10)
[2020-10-17] MEDS: ASPIRIN EC 81 MG PO SCH (22:00)
[2020-10-17] MEDS: PriLOSEC PO SCH (22:00)
[2020-10-17] MEDS: CRESTOR TAB 10 MG PO SCH (22:00)
[2020-10-17] MEDS: NEURONTIN CAP 300 MG PO SCH (22:00)
[2020-10-18] MEDS ORDERED: NS 1/2 1000 ML IV 1,000 ML IV ONE ×2 (00:45→17:09)
[2020-10-18] MEDS: NS 1/2 1000 ML IV 1,000 ML IV SCH ×2 (03:21→17:17)
[2020-10-18] MEDS: DUONEB 0.5 MG/3 MG (3 mL) NEB SCH ×6 (04:05→20:25)
[2020-10-18] MEDS: SOLU-Medrol 40 MG VIAL IVP SCH ×3 (06:00→21:00)
[2020-10-18 07:17] LABS: BASOPHILS % (AUTO) 0 % (0.2-1.0); HEMATOCRIT 39.8 % (36.0-47.0); HEMOGLOBIN 13.3 g/dL (12.0-16.0); LYMPHOCYTES # (AUTO) 0.2 X10^3/uL (1.3-2.9); LYMPHOCYTES % (AUTO) 1.7 % (21.0-51.0); MEAN CORPUSCULAR HEMOGLOBIN 31.5 pg (27.0-34.0); MEAN CORPUSCULAR HGB CONC 33.4 g/dL (33.0-35.0); MEAN CORPUSCULAR VOLUME 94.4 fL (80.0-100.0); MEAN PLATELET VOLUME 8.1 fL (7.4-11.0); MONOCYTES # (AUTO) 0.3 x10^3/uL (0.3-0.8); MONOCYTES % (AUTO) 2.4 % (0.0-13.0); NEUTROPHILS # (AUTO) 11.8 x10^3/uL (2.2-4.8); NEUTROPHILS % (AUTO) 95.9 % (42.0-75.0); PLATELET COUNT 211 X10^3/uL (150.0-450.0); RED BLOOD COUNT 4.22 X10^6/uL (3.5-5.4); RED CELL DISTRIBUTION WIDTH 14.1 % (11.6-16.5); WHITE BLOOD COUNT 12.3 X10^3/uL (3.6-10.0)
[2020-10-18 07:20] LABS: ALANINE AMINOTRANSFERASE 41 Units/L (12-78); ALBUMIN 2.9 g/dL (3.4-5.0); ALKALINE PHOSPHATASE 72 Units/L (46-116); ASPARTATE AMINO TRANSFERASE 30 Units/L (15-37); BLOOD UREA NITROGEN 11 mg/dL (7-18); CALCIUM 8.2 mg/dL (8.5-10.1); CARBON DIOXIDE 35.4 mmol/L (21-32); CHLORIDE 102 mmol/L (98-107); COR CA(FOR HYPOALB) 9.1 mg/dL (8.5-10.1); COR NA(FOR HYPERGLY) 140 mmol/L (136-145); SODIUM 139 mmol/L (136-145); TOTAL PROTEIN 5.8 g/dL (6.4-8.2); eGFR NON BLACK RACES > 60 (>60)
[2020-10-18 07:42] LABS: BAND NEUTROPHILS % 1 % (0-10); PLATELET MORPHOLOGY COMMENT NORMAL (NORMAL)
[2020-10-18] MEDS: PULMICORT NEB TX 0.5 MG NEB SCH ×2 (08:45→20:25)
[2020-10-18] MEDS: LEVAQUIN PREMIX IV 500 MG 500 MG/100 ML BAG IV SCH (08:56)
[2020-10-18] MEDS: LOVENOX INJ 40 MG SYR SC SCH ×2 (09:00→09:50)
[2020-10-18] MEDS: VSL#3 PO SCH (09:02)
[2020-10-18] MEDS: NORVASC TAB 10 MG PO SCH (09:03)
[2020-10-18] MEDS: ROBITUSSIN DM PO SCH ×4 (09:04→21:00)
[2020-10-18] MEDS: ZANAFLEX PO SCH ×2 (09:05→21:00)
[2020-10-18] MEDS: TOPROL XL PO SCH (09:05)
[2020-10-18] MEDS: K-DUR TAB 20 MEQ PO PRN (09:11)
--- NOTE | 2020-10-18 11:01 | PCM.PROG ---
Progress Note Progress Note for Day of Date of Exam: 10/18/20 Subjective Subjective: Patient seen at bedside, no events overnight. She states she is feeling slightly better this morning. She is currently on 3L NC. She is having mild productive cough. Denies fever or chills. Denies GI Sx. Labs: WBC 12.3 CXR: suggestive of COPD, no infiltrate noted Sputum: normal toni Blood Cx: negative Plan: Wean O2 as tolerated, continue IS, bronchodilators. Continue Levaquin. Continue solumedrol. Monitor AM labs. Aggressive pulmonary toilet with IS. Past Medical Family Social History Past Med/Fam/Surg Hx: No changes since H&P Allergies: Allergies No Known Drug Allergies Allergy (Verified 04/18/19 23:01) Review of Systems ROS: No change since H&P Vital Signs and I&O's Vital Signs: Temperature 98.1 F Pulse Rate [Left Radial] 96 Pulse Rate 111 Respiratory Rate 20 Blood Pressure [Left Arm] 154/71 Blood Pressure 165/76 O2 Sat by Pulse Oximetry 94 Intake and Output: Intake & Output 10/15/20 10/16/20 10/17/20 10/18/20 23:59 23:59 23:59 23:59 Intake Total 780 / 780 3070 / 3070 3514 / 3514 0 / 0 Output Total 1200 / 1200 900 / 900 Balance 780 / 780 1870 / 1870 2614 / 2614 0 / 0 Physical Exam Oriented: Normal Eyes: Normal Ear: Normal Nose: Normal Throat: Normal Respiratory: Generalized and Diminished (slightly improved air entry ) Cardiovascular: Normal Auscultation: Bowel Sounds: Normal Tenderness: Normal Skin: Normal Musculoskeletal: Normal Psychiatric: Normal Mood Description: Calm Affect: Normal Speech Pattern: Clear and Appropriate Laboratory and Diagnostics Result Diagrams: 10/18/20 06:36 10/18/20 06:36 Labs: 10/15/20 19:22 Sputum - Expectorated Sputum Sputum Culture - Final 10/15/20 19:22 Sputum - Expectorated Sputum - Final 10/15/20 18:51 Blood Blood Culture - Preliminary 10/15/20 18:39 Blood Blood Culture - Preliminary Laboratory WBC 12.3 X10^3/uL (3.6-10.0) H 10/18/20 06:36 RBC 4.22 X10^6/uL (3.5-5.4) 10/18/20 06:36 Hgb 13.3 g/dL (12.0-16.0) 10/18/20 06:36 Hct 39.8 % (36.0-47.0) 10/18/20 06:36 MCV 94.4 fL (80.0-100.0) 10/18/20 06:36 MCH 31.5 pg (27.0-34.0) 10/18/20 06:36 MCHC 33.4 g/dL (33.0-35.0) 10/18/20 06:36 RDW 14.1 % (11.6-16.5) 10/18/20 06:36 Plt Count 211 X10^3/uL (150.0-450.0) 10/18/20 06:36 Plt Count Comment Adequate (ADEQUATE) 10/18/20 06:36 MPV 8.1 fL (7.4-11.0) 10/18/20 06:36 Neut % (Auto) 95.9 % (42.0-75.0) H 10/18/20 06:36 Lymph % (Auto) 1.7 % (21.0-51.0) L 10/18/20 06:36 [place] % (Auto) 2.4 % (0.0-13.0) 10/18/20 06:36 Eos % (Auto) 0.0 % (0.9-2.9) L 10/18/20 06:36 Baso % (Auto) 0 % (0.2-1.0) L 10/18/20 06:36 Neut # (Auto) 11.8 x10^3/uL (2.2-4.8) H 10/18/20 06:36 Lymph # (Auto) 0.2 X10^3/uL (1.3-2.9) L 10/18/20 06:36 [place] # (Auto) 0.3 x10^3/uL (0.3-0.8) 10/18/20 06:36 Eos # (Auto) 0.0 x10^3/uL (0.0-0.2) 10/18/20 06:36 Baso # (Auto) 0.0 X10^3/uL (0.0-0.1) 10/18/20 06:36 Absolute Nucleated RBC 0.0 /100WBC 10/18/20 06:36 Total Counted 100 10/18/20 06:36 Neutrophils % (Manual) 95 % (39-76) H 10/18/20 06:36 Band Neutrophils % 1 % (0-10) 10/18/20 06:36 Lymphocytes % (Manual) 2 % (13-43) L 10/18/20 06:36 Monocytes % (Manual) 2 % (4-9) L 10/18/20 06:36 Plt Morphology Comment Normal (NORMAL) 10/18/20 06:36 RBC Morphology Normal (NORMAL) 10/18/20 06:36 Sample Site Rbra 10/15/20 18:40 ABG pH 7.460 (7.35-7.45) H 10/15/20 18:40 ABG pCO2 58.0 mmHg (35.0-45.0) H* 10/15/20 18:40 ABG pO2 68.0 mmHg (80.0-100.0) L 10/15/20 18:40 ABG HCO3 41.3 mmol/L (22-26) H* 10/15/20 18:40 ABG O2 Saturation 94.0 % (90-100) 10/15/20 18:40 ABG Base Excess 14.9 mmol/L (-2.0-2.0) H 10/15/20 18:40 Xavier Test N/a 10/15/20 18:40 A-a Gradient 88.0 mmHg 10/15/20 18:40 FiO2 32.0 10/15/20 18:40 Blood Gas Comments Pt albert well 10/15/20 18:40 Sodium 139 mmol/L (136-145) 10/18/20 06:36 Corrected Sodium 140 mmol/L (136-145) 10/18/20 06:36 Potassium 3.5 mmol/L (3.5-5.1) 10/18/20 06:36 Chloride 102 mmol/L (98-107) 10/18/20 06:36 Carbon Dioxide 35.4 mmol/L (21-32) H 10/18/20 06:36 BUN 11 mg/dL (7-18) 10/18/20 06:36 Creatinine 0.50 mg/dL (0.55-1.02) L 10/18/20 06:36 Est GFR (MDRD) Af Amer > 60 (>60) 10/18/20 06:36 Est GFR (MDRD) Non-Af > 60 (>60) 10/18/20 06:36 Glucose 135 mg/dL (65-99) H 10/18/20 06:36 Calcium 8.2 mg/dL (8.5-10.1) L 10/18/20 06:36 Corrected Calcium 9.1 mg/dL (8.5-10.1) 10/18/20 06:36 Magnesium 2.0 mg/dL (1.7-2.9) 10/18/20 06:36 Total Bilirubin 0.40 mg/dL (0.2-1.0) 10/18/20 06:36 AST 30 Units/L (15-37) 10/18/20 06:36 ALT 41 Units/L (12-78) 10/18/20 06:36 Alkaline Phosphatase 72 Units/L (46-116) 10/18/20 06:36 Total Protein 5.8 g/dL (6.4-8.2) L 10/18/20 06:36 Albumin 2.9 g/dL (3.4-5.0) L 10/18/20 06:36 Globulin 2.9 g/dL (2.5-4.5) 10/18/20 06:36 Albumin/Globulin Ratio 1.0 Ratio (1.1-2.1) L 10/18/20 06:36 SARS CoV-2 RNA Rapid [facility]KE Negative (NEGATIVE) 10/15/20 16:17 Plan (1) COPD with acute exacerbation: Status: Acute (2) Acute bronchitis: Status: Acute Qualifiers: Bronchitis organism: unspecified organism Qualified Code(s): J20.9 - Acute bronchitis, unspecified (3) Hypokalemia: Status: Acute
[2020-10-18] MEDS: PriLOSEC PO SCH (21:00)
[2020-10-18] MEDS: NEURONTIN CAP 300 MG PO SCH (21:00)
[2020-10-18] MEDS: ASPIRIN EC 81 MG PO SCH (21:00)
[2020-10-18] MEDS: CRESTOR TAB 10 MG PO SCH (21:00)
[2020-10-18] MEDS: TUSSIONEX PENNKINETIC SUSP PO PRN (23:00)
[2020-10-19] MEDS: DUONEB 0.5 MG/3 MG (3 mL) NEB SCH ×4 (00:10→13:50)
[2020-10-19 05:30] LABS: BASOPHILS % (AUTO) 0.3 % (0.2-1.0); HEMATOCRIT 42.9 % (36.0-47.0); HEMOGLOBIN 14.1 g/dL (12.0-16.0); LYMPHOCYTES # (AUTO) 0.2 X10^3/uL (1.3-2.9); MEAN CORPUSCULAR HEMOGLOBIN 31.4 pg (27.0-34.0); MEAN CORPUSCULAR VOLUME 95.1 fL (80.0-100.0); MEAN PLATELET VOLUME 8.5 fL (7.4-11.0); MONOCYTES # (AUTO) 0.4 x10^3/uL (0.3-0.8); MONOCYTES % (AUTO) 3.4 % (0.0-13.0); NEUTROPHILS # (AUTO) 11.6 x10^3/uL (2.2-4.8); NEUTROPHILS % (AUTO) 94.3 % (42.0-75.0); PLATELET COUNT 231 X10^3/uL (150.0-450.0); RED BLOOD COUNT 4.51 X10^6/uL (3.5-5.4); RED CELL DISTRIBUTION WIDTH 14.3 % (11.6-16.5); WHITE BLOOD COUNT 12.3 X10^3/uL (3.6-10.0)
[2020-10-19 05:39] LABS: ALANINE AMINOTRANSFERASE 53 Units/L (12-78); ALKALINE PHOSPHATASE 81 Units/L (46-116); ASPARTATE AMINO TRANSFERASE 32 Units/L (15-37); BLOOD UREA NITROGEN 16 mg/dL (7-18); CALCIUM 8.5 mg/dL (8.5-10.1); CARBON DIOXIDE 35.9 mmol/L (21-32); CHLORIDE 102 mmol/L (98-107); COR CA(FOR HYPOALB) 9.3 mg/dL (8.5-10.1); COR NA(FOR HYPERGLY) 140 mmol/L (136-145); CREATININE 0.53 mg/dL (0.55-1.02); SODIUM 139 mmol/L (136-145); TOTAL PROTEIN 5.9 g/dL (6.4-8.2); eGFR NON BLACK RACES > 60 (>60)
[2020-10-19] MEDS: SOLU-Medrol 40 MG VIAL IVP SCH ×3 (06:00→14:38)
[2020-10-19] MEDS ORDERED: NS 1/2 1000 ML IV 1,000 ML IV ONE (06:01)
[2020-10-19 06:02] LABS: PLATELET MORPHOLOGY COMMENT NORMAL (NORMAL)
[2020-10-19] MEDS: NS 1/2 1000 ML IV 1,000 ML IV SCH (06:30)
[2020-10-19] MEDS: PULMICORT NEB TX 0.5 MG NEB SCH (09:20)
[2020-10-19] MEDS: LEVAQUIN PREMIX IV 500 MG 500 MG/100 ML BAG IV SCH (09:24)
[2020-10-19] MEDS: ZANAFLEX PO SCH (09:24)
[2020-10-19] MEDS: VSL#3 PO SCH (09:24)
[2020-10-19] MEDS: TOPROL XL PO SCH (09:25)
[2020-10-19] MEDS: ROBITUSSIN DM PO SCH ×2 (09:25→13:53)
[2020-10-19] MEDS: NORVASC TAB 10 MG PO SCH (09:25)
[2020-10-19] MEDS: LOVENOX INJ 40 MG SYR SC SCH (09:28)
[2020-10-19 11:00] LABS: ABG BASE EXCESS 10.7 mmol/L (-2.0-2.0)
[2020-10-19 11:02] LABS: ABG HCO3 36.7 mmol/L (22-26)
[2020-10-19 14:07] VITALS: BP 115/59
== END 2020-10-19 14:15 | disposition home or self-care (01) | DRG 192 ==
LOC: OBS 13:22 → MED/SURG 23:31
PROVIDERS: ADMIT Internal Medicine; ATTEND Internal Medicine
DX: Z20.822 Contact with and (suspected) exposure to COVID-19; J20.9 Acute bronchitis, unspecified; J44.0 Chronic obstructive pulmonary disease with (acute) lower respiratory infection; E87.6 Hypokalemia; J44.1 Chronic obstructive pulmonary disease with (acute) exacerbation

== ENCOUNTER 2021-03-13 23:00 | Observation (INO) ==
[2021-03-13 23:54] LABS: ABG BASE EXCESS 18.7 mmol/L (-2.0-2.0)
[2021-03-13 23:55] LABS: ABG ALLEN TEST POS; ABG HCO3 45.4 mmol/L (22-26)
[2021-03-13 23:56] LABS: BASOPHILS % (AUTO) 0.3 % (0.2-1.0); EOSINOPHILS # (AUTO) 0.1 x10^3/uL (0.0-0.2); EOSINOPHILS % (AUTO) 0.7 % (0.9-2.9); HEMATOCRIT 46.4 % (36.0-47.0); LYMPHOCYTES # (AUTO) 1.1 X10^3/uL (1.3-2.9); LYMPHOCYTES % (AUTO) 7.9 % (21.0-51.0); MEAN CORPUSCULAR HEMOGLOBIN 31.6 pg (27.0-34.0); MEAN CORPUSCULAR HGB CONC 34.6 g/dL (33.0-35.0); MEAN CORPUSCULAR VOLUME 91.2 fL (80.0-100.0); MEAN PLATELET VOLUME 7.9 fL (7.4-11.0); MONOCYTES % (AUTO) 6.9 % (0.0-13.0); NEUTROPHILS # (AUTO) 12.2 x10^3/uL (2.2-4.8); NEUTROPHILS % (AUTO) 84.2 % (42.0-75.0); PLATELET COUNT 270 X10^3/uL (150.0-450.0); RED BLOOD COUNT 5.08 X10^6/uL (3.5-5.4); RED CELL DISTRIBUTION WIDTH 14.5 % (11.6-16.5); WHITE BLOOD COUNT 14.5 X10^3/uL (3.6-10.0)
--- NOTE | 2021-03-14 00:13 | RAD ---
EXAM: CHEST X-RAYHISTORY: Shortness of breath.TECHNIQUE: AP chest x-ray dated March 13, 2021 at 11:50 PM.COMPARISON: CXR dated October 17, 2020.FINDINGS:There is severe aortic atherosclerosis. The heart size and mediastinum are within normal limits. There is lung parenchymal hyperinflation and hyperlucency in keeping with COPD/emphysema. There is no acute parenchymal infiltrate, pleural effusion, or pneumothorax seen. There is mild thoracic dextroscoliosis. The visualized bony structures are within normal limits.IMPRESSION:1. No evidence for acute cardiopulmonary disease seen.2. Severe COPD/emphysema.3. Overall, no significant interval change seen.Electronically signed by: Edwin Manley (Mar 14, 2021 00:09:58)
[2021-03-14 00:33] LABS: ALANINE AMINOTRANSFERASE 36 Units/L (12-78); ALBUMIN 4.1 g/dL (3.4-5.0); ALKALINE PHOSPHATASE 87 Units/L (46-116); ASPARTATE AMINO TRANSFERASE 39 Units/L (15-37); BLOOD UREA NITROGEN 13 mg/dL (7-18); CALCIUM 9.9 mg/dL (8.5-10.1); CARBON DIOXIDE 39.5 mmol/L (21-32); CHLORIDE 102 mmol/L (98-107); CKMB % 6.1 % (<4); CREATINE KINASE 166 Units/L (26-192); CREATININE 0.74 mg/dL (0.55-1.02); SODIUM 146 mmol/L (136-145); TOTAL PROTEIN 7.7 g/dL (6.4-8.2); TROPONIN I < 0.02 ng/mL (0-1.5); eGFR NON BLACK RACES > 60 (>60)
[2021-03-14 00:36] LABS: CREATINE KINASE MB 10.1 ng/mL (0-4.0)
[2021-03-14 03:39] VITALS: BMI 12.3
[2021-03-14] MEDS: PROVENTIL NEB TX 0.083% 2.5MG/ 3ML NEB SCH ×5 (05:05→20:05)
[2021-03-14 05:59] LABS: BASOPHILS # (AUTO) 0.1 X10^3/uL (0.0-0.1); BASOPHILS % (AUTO) 0.5 % (0.2-1.0); EOSINOPHILS % (AUTO) 0.1 % (0.9-2.9); HEMATOCRIT 43.3 % (36.0-47.0); HEMOGLOBIN 14.9 g/dL (12.0-16.0); LYMPHOCYTES # (AUTO) 0.8 X10^3/uL (1.3-2.9); MEAN CORPUSCULAR HEMOGLOBIN 31.4 pg (27.0-34.0); MEAN CORPUSCULAR HGB CONC 34.4 g/dL (33.0-35.0); MEAN CORPUSCULAR VOLUME 91.2 fL (80.0-100.0); MEAN PLATELET VOLUME 8.5 fL (7.4-11.0); MONOCYTES # (AUTO) 0.5 x10^3/uL (0.3-0.8); MONOCYTES % (AUTO) 3.6 % (0.0-13.0); NEUTROPHILS # (AUTO) 11.9 x10^3/uL (2.2-4.8); NEUTROPHILS % (AUTO) 89.8 % (42.0-75.0); PLATELET COUNT 278 X10^3/uL (150.0-450.0); RED BLOOD COUNT 4.75 X10^6/uL (3.5-5.4); RED CELL DISTRIBUTION WIDTH 14.3 % (11.6-16.5); WHITE BLOOD COUNT 13.3 X10^3/uL (3.6-10.0)
[2021-03-14 06:05] LABS: ALANINE AMINOTRANSFERASE 32 Units/L (12-78); ALBUMIN 3.6 g/dL (3.4-5.0); ALKALINE PHOSPHATASE 77 Units/L (46-116); ASPARTATE AMINO TRANSFERASE 29 Units/L (15-37); BLOOD UREA NITROGEN 14 mg/dL (7-18); CALCIUM 9.5 mg/dL (8.5-10.1); CARBON DIOXIDE 39.7 mmol/L (21-32); CHLORIDE 102 mmol/L (98-107); COR NA(FOR HYPERGLY) 143 mmol/L (136-145); CREATININE 0.66 mg/dL (0.55-1.02); SODIUM 142 mmol/L (136-145); TOTAL PROTEIN 6.7 g/dL (6.4-8.2); eGFR NON BLACK RACES > 60 (>60)
[2021-03-14] MEDS ORDERED: POTASSIUM CHLORIDE LIQ 20 MEQ UDC PO PRN (06:19)
[2021-03-14] MEDS ORDERED: POTASSIUM CHL 60 MEQ/NS 0.45% 500 ML IV PRN (06:19)
[2021-03-14] MEDS ORDERED: KLOR-CON PO PRN (06:19)
[2021-03-14] MEDS ORDERED: POTASSIUM CHL 40 MEQ/NS 0.45% 500 ML IV PRN (06:19)
[2021-03-14] MEDS ORDERED: K-RIDER 10 MEQ/NS 100 ML 10 MEQ/100 ML BAG IV PRN (06:19)
[2021-03-14] MEDS ORDERED: MAGNESIUM SULFATE 1 GRAM/100 mL PREMIX 1 GM/100 ML BAG IV PRN (06:19)
[2021-03-14] MEDS ORDERED: MICRO K EXTEN CAP 10 MEQ PO PRN (06:19)
--- NOTE | 2021-03-14 07:49 | DR.SOBA ---
HPI Time Seen Time Seen by Provider: 03/13/21 23:27 Primary Care Physician Primary Care Physician: Dr. Funk HPI Comment HPI Comment: She has been sob and easily fatigued more than usual x several days; chronic cough is unchanged; she has no wheezing, cp, fevers or chills; she's been fully vaccinated. Complaints Chief Complaint:: PT IN ED VIA [facility] WITH C/O SOB. PER EMS PT WAS SATING 96% ON 3L/NC AT HOME. PT PLACED ON 3L/NC ON ARRIVAL TO ER. COVID-19 Coronavirus risk:travel/contact w/high risk person: No Has patient experienced Coronavirus symptoms: No Source History Provided: Patient Mode of Arrival Mode of Arrival: EMS Timing Onset of Chief Complaint: 03/13/21 PMH PMH Past Medical History: Yes Past Medical History: COPD, Dyslipidemia, GERD, Hypertension and Sleep Apnea Past Surgical History: Yes Surgical History: Family History History of Family Medical Conditions: No (UNKNOWN PT ADOPTED) Social History Does patient currently use any type of tobacco product: Yes Have you used tobacco products in the last 12 months: Yes Type of Tobacco Use: Cigarettes How many years tobacco product used: 50 Does any household member use tobacco: No Alcohol Use: None Do you use any recreational Drugs:: No Lives With: Spouse Lives Where: Home Travel Risk Coronavirus risk:travel/contact w/high risk person: No Has patient experienced Coronavirus symptoms: No Infectious screening In the last 2 months have you had wt loss of >10#?: NO Have you had fever, night sweats or hemotysis?: No Have you traveled outside the country in the last 6 months?: No Isolation: Standard ROS Review of Systems Eyes: No Symptoms Reported ENTM: No Symptoms Reported Cardiovascular: No Symptoms Reported Gastrointestinal/Abdominal: No Symptoms Reported Genitourinary: No Symptoms Reported Neurological: No Symptoms Reported Musculoskeletal: No Symptoms Reported Integumentary: No Symptoms Reported Hematologic/Lymphatic: No Symptoms Reported Endocrine: No Symptoms Reported Psychiatric: No Symptoms Reported PE Vital Signs Vitals: Temperature 97.6 F Pulse Rate 88 Respiratory Rate 24 Blood Pressure [Left Arm] 115/59 Blood Pressure 142/65 O2 Sat by Pulse Oximetry 96 General Limitations: No Limitations General Appearance: Cachectic Head Head Exam: Normal Inspection Eyes Eye exam: Normal Appearance ENT ENT Exam: Normal Exam Neck Neck Exam: Normal Inspection and Full ROM Chest Chest Inspection: Normal Inspection and Symmetric Chest Wall Rise Respiratory Respiratory Exam: Normal Lung Sounds Bilat and Other (obvious increased wob) Respiratory Exam: Bilateral: Clear to Auscultation and Bilateral: Decreased Breath Sounds Cardiovascular Cardiovascular Exam: Regular Rate and Normal Rhythm Abdominal Exam Abdominal Exam: Normal Inspection, Normal Bowel Sounds and Soft Extremities Extremities Exam: Normal Inspection Back Back Exam: Normal Inspection Neurologic Neurological Exam: Alert and Oriented X3 Psychiatric Psychiatric Exam: Normal Affect and Normal Mood Skin Skin Exam: Warm, Dry, Intact and Normal Color MDM Differential Diagnosis Differential Diagnosis: Bronchitis, CHF, COPD, Mycardial Infarction and Respiratory Insufficiency COURSE Consultation Call Returned: 01:50 (Dr Damon accepts admission.) ROR Labs Reviewed Laboratory Results Reviewed?: Yes Result Diagrams: 03/14/21 05:14 03/14/21 05:14 Laboratory: WBC 14.5 X10^3/uL (3.6-10.0) H 03/13/21 23:43 RBC 5.08 X10^6/uL (3.5-5.4) 03/13/21 23:43 Hgb 16.0 g/dL (12.0-16.0) 03/13/21 23:43 Hct 46.4 % (36.0-47.0) 03/13/21 23:43 MCV 91.2 fL (80.0-100.0) 03/13/21 23:43 MCH 31.6 pg (27.0-34.0) 03/13/21 23:43 MCHC 34.6 g/dL (33.0-35.0) 03/13/21 23:43 RDW 14.5 % (11.6-16.5) 03/13/21 23:43 Plt Count 270 X10^3/uL (150.0-450.0) 03/13/21 23:43 MPV 7.9 fL (7.4-11.0) 03/13/21 23:43 Neut % (Auto) 84.2 % (42.0-75.0) H 03/13/21 23:43 Lymph % (Auto) 7.9 % (21.0-51.0) L 03/13/21 23:43 [place] % (Auto) 6.9 % (0.0-13.0) 03/13/21 23:43 Eos % (Auto) 0.7 % (0.9-2.9) L 03/13/21 23:43 Baso % (Auto) 0.3 % (0.2-1.0) 03/13/21 23:43 Neut # (Auto) 12.2 x10^3/uL (2.2-4.8) H 03/13/21 23:43 Lymph # (Auto) 1.1 X10^3/uL (1.3-2.9) L 03/13/21 23:43 [place] # (Auto) 1.0 x10^3/uL (0.3-0.8) H 03/13/21 23:43 Eos # (Auto) 0.1 x10^3/uL (0.0-0.2) 03/13/21 23:43 Baso # (Auto) 0.0 X10^3/uL (0.0-0.1) 03/13/21 23:43 Absolute Nucleated RBC 0.0 /100WBC 03/13/21 23:43 Sample Site Rba 03/13/21 23:53 ABG pH 7.480 (7.35-7.45) H 03/13/21 23:53 ABG pCO2 61.0 mmHg (35.0-45.0) H* 03/13/21 23:53 ABG pO2 54.0 mmHg (80.0-100.0) L 03/13/21 23:53 ABG HCO3 45.4 mmol/L (22-26) H* 03/13/21 23:53 ABG O2 Saturation 90.0 % (90-100) 03/13/21 23:53 ABG Base Excess 18.7 mmol/L (-2.0-2.0) H 03/13/21 23:53 Xavier Test Pos 03/13/21 23:53 A-a Gradient 98.0 mmHg 03/13/21 23:53 FiO2 32.0 03/13/21 23:53 Blood Gas Comments Kayla well mts 03/13/21 23:53 Sodium 146 mmol/L (136-145) H 03/13/21 23:43 Corrected Sodium TNP 03/13/21 23:43 Potassium 3.3 mmol/L (3.5-5.1) L 03/13/21 23:43 Chloride 102 mmol/L (98-107) 03/13/21 23:43 Carbon Dioxide 39.5 mmol/L (21-32) H 03/13/21 23:43 BUN 13 mg/dL (7-18) 03/13/21 23:43 Creatinine 0.74 mg/dL (0.55-1.02) 03/13/21 23:43 Est GFR (MDRD) Af Amer > 60 (>60) 03/13/21 23:43 Est GFR (MDRD) Non-Af > 60 (>60) 03/13/21 23:43 Glucose 70 mg/dL (65-99) 03/13/21 23:43 Calcium 9.9 mg/dL (8.5-10.1) 03/13/21 23:43 Corrected Calcium TNP 03/13/21 23:43 Total Bilirubin 0.60 mg/dL (0.2-1.0) 03/13/21 23:43 AST 39 Units/L (15-37) H 03/13/21 23:43 ALT 36 Units/L (12-78) 03/13/21 23:43 Alkaline Phosphatase 87 Units/L (46-116) 03/13/21 23:43 Creatine Kinase 166 Units/L (26-192) 03/13/21 23:43 CK-MB (CK-2) 10.1 ng/mL (0-4.0) H* 03/13/21 23:43 CK/CKMB % Calc 6.1 % (<4) 03/13/21 23:43 Troponin I < 0.02 ng/mL (0-1.5) 03/13/21 23:43 Total Protein 7.7 g/dL (6.4-8.2) 03/13/21 23:43 Albumin 4.1 g/dL (3.4-5.0) 03/13/21 23:43 Globulin 3.6 g/dL (2.5-4.5) 03/13/21 23:43 Albumin/Globulin Ratio 1.1 Ratio (1.1-2.1) 03/13/21 23:43 SARS-CoV-2 (PCR) Negative (NEGATIVE) 03/14/21 00:07 Influenza Type A (PCR) Negative (NEGATIVE) 03/14/21 00:07 Influenza Type B (PCR) Negative (NEGATIVE) 03/14/21 00:07 RSV (PCR) Negative (NEGATIVE) 03/14/21 00:07 XRAY XRAY Interpreted by: Radiologist X-ray Results: pcxr: 1. No evidence for acute cardiopulmonary disease seen. 2. Severe COPD/emphysema. 3. Overall, no significant interval change seen. Opioid Opioid Risk Tool Age (Aleksey box if 16-45): No History of Preadolescent Sexual Abuse: No Total: 0 Total Score Risk Category: Low Risk Copyright: Paresh OLSON predicting aberrant behaviors Diagnosis Discharge Problem: Hypoxia, COPD (chronic obstructive pulmonary disease), Hypokalemia, Elevated CK-MB level Instructions Forms: Precautions for COVID19 Patient Portal Social Distancing
[2021-03-14] MEDS: PULMICORT NEB TX 0.5 MG NEB SCH ×2 (09:00→20:05)
[2021-03-14 09:31] LABS: CKMB % 7.9 % (<4); CREATINE KINASE 103 Units/L (26-192); TROPONIN I < 0.02 ng/mL (0-1.5)
[2021-03-14 09:33] LABS: CREATINE KINASE MB 8.1 ng/mL (0-4.0)
--- NOTE | 2021-03-14 11:09 | DR.H&P ---
H&P History & Physical for Day of: H&P Date: 03/14/21 Chief Complaint Chief Complaint: Shortness of breath Allergies Allergies Allergy/AdvReac Type Severity Reaction Status Date / Time No Known Drug Allergies Allergy Verified 04/18/19 23:01 History of Present Illness History of Present Illness: Pt is a 65 year old female past medical history COPD, Hypertension, presenting with increased shortness of breath and chest tightness. She denies fevers, chills, abdominal pain, dysuria, diarrhea, constipation. She does have severe COPD which she is on 2.5L nasal cannula supplemental O2 and uses Trilogy at night. Labs/imaging: Wbc 14.5>13.3, Hgb 14.9, Plt 278, Na 142, K 3.1, Creatinine 0.66, Glucose 126, ABG: pH:7.48, pCO2 61, pO2 54, HCO3 45, 90% O2, on FiO2 32%, Troponin negative x2, CXR: 1. No evidence for acute cardiopulmonary disease seen. 2. Severe COPD/emphysema. 3. Overall, no significant interval change seen. Pt was admitted for COPD exacerbation and chest pain rule out. Pt is using increased supplemental O2 of up to 3L, continue scheduled bronchodilator treatments, IV Solumedrol 40mg Q12H, restart home medications. Replete potassium per protocol. Continue to monitor and follow up labs/imaging in the morning. Past Medical History Past Medical History: COPD, Dyslipidemia, GERD, Hypertension and Sleep Apnea Past Surgical History Surgical History: Social History Does patient currently use any type of tobacco product: Yes Have you used tobacco products in the last 12 months: Yes Type of Tobacco Use: Cigarettes How many years tobacco product used: 50 Does any household member use tobacco: No Alcohol Use: None Drug Use: None Medications Home Medications: No Known Drug Allergies Allergy (Verified 04/18/19 23:01) Labs Result Diagrams: 03/14/21 05:14 03/14/21 05:14 Labs: Laboratory WBC 13.3 X10^3/uL (3.6-10.0) H 03/14/21 05:14 RBC 4.75 X10^6/uL (3.5-5.4) 03/14/21 05:14 Hgb 14.9 g/dL (12.0-16.0) 03/14/21 05:14 Hct 43.3 % (36.0-47.0) 03/14/21 05:14 MCV 91.2 fL (80.0-100.0) 03/14/21 05:14 MCH 31.4 pg (27.0-34.0) 03/14/21 05:14 MCHC 34.4 g/dL (33.0-35.0) 03/14/21 05:14 RDW 14.3 % (11.6-16.5) 03/14/21 05:14 Plt Count 278 X10^3/uL (150.0-450.0) 03/14/21 05:14 MPV 8.5 fL (7.4-11.0) 03/14/21 05:14 Neut % (Auto) 89.8 % (42.0-75.0) H 03/14/21 05:14 Lymph % (Auto) 6.0 % (21.0-51.0) L 03/14/21 05:14 [place] % (Auto) 3.6 % (0.0-13.0) 03/14/21 05:14 Eos % (Auto) 0.1 % (0.9-2.9) L 03/14/21 05:14 Baso % (Auto) 0.5 % (0.2-1.0) 03/14/21 05:14 Neut # (Auto) 11.9 x10^3/uL (2.2-4.8) H 03/14/21 05:14 Lymph # (Auto) 0.8 X10^3/uL (1.3-2.9) L 03/14/21 05:14 [place] # (Auto) 0.5 x10^3/uL (0.3-0.8) 03/14/21 05:14 Eos # (Auto) 0.0 x10^3/uL (0.0-0.2) 03/14/21 05:14 Baso # (Auto) 0.1 X10^3/uL (0.0-0.1) 03/14/21 05:14 Absolute Nucleated RBC 0.0 /100WBC 03/14/21 05:14 Sample Site Rba 03/13/21 23:53 ABG pH 7.480 (7.35-7.45) H 03/13/21 23:53 ABG pCO2 61.0 mmHg (35.0-45.0) H* 03/13/21 23:53 ABG pO2 54.0 mmHg (80.0-100.0) L 03/13/21 23:53 ABG HCO3 45.4 mmol/L (22-26) H* 03/13/21 23:53 ABG O2 Saturation 90.0 % (90-100) 03/13/21 23:53 ABG Base Excess 18.7 mmol/L (-2.0-2.0) H 03/13/21 23:53 Xavier Test Pos 03/13/21 23:53 A-a Gradient 98.0 mmHg 03/13/21 23:53 FiO2 32.0 03/13/21 23:53 Blood Gas Comments Kayla well mts 03/13/21 23:53 Sodium 142 mmol/L (136-145) 03/14/21 05:14 Corrected Sodium 143 mmol/L (136-145) 03/14/21 05:14 Potassium 3.1 mmol/L (3.5-5.1) L 03/14/21 05:14 Chloride 102 mmol/L (98-107) 03/14/21 05:14 Carbon Dioxide 39.7 mmol/L (21-32) H 03/14/21 05:14 BUN 14 mg/dL (7-18) 03/14/21 05:14 Creatinine 0.66 mg/dL (0.55-1.02) 03/14/21 05:14 Est GFR (MDRD) Af Amer > 60 (>60) 03/14/21 05:14 Est GFR (MDRD) Non-Af > 60 (>60) 03/14/21 05:14 Glucose 126 mg/dL (65-99) H 03/14/21 05:14 Calcium 9.5 mg/dL (8.5-10.1) 03/14/21 05:14 Corrected Calcium TNP 03/14/21 05:14 Magnesium 2.2 mg/dL (1.7-2.9) 03/14/21 05:14 Total Bilirubin 0.70 mg/dL (0.2-1.0) 03/14/21 05:14 AST 29 Units/L (15-37) 03/14/21 05:14 ALT 32 Units/L (12-78) 03/14/21 05:14 Alkaline Phosphatase 77 Units/L (46-116) 03/14/21 05:14 Creatine Kinase 103 Units/L (26-192) 03/14/21 08:25 CK-MB (CK-2) 8.1 ng/mL (0-4.0) H* 03/14/21 08:25 CK/CKMB % Calc 7.9 % (<4) 03/14/21 08:25 Troponin I < 0.02 ng/mL (0-1.5) 03/14/21 08:25 Total Protein 6.7 g/dL (6.4-8.2) 03/14/21 05:14 Albumin 3.6 g/dL (3.4-5.0) 03/14/21 05:14 Globulin 3.1 g/dL (2.5-4.5) 03/14/21 05:14 Albumin/Globulin Ratio 1.2 Ratio (1.1-2.1) 03/14/21 05:14 SARS-CoV-2 (PCR) Negative (NEGATIVE) 03/14/21 00:07 Influenza Type A (PCR) Negative (NEGATIVE) 03/14/21 00:07 Influenza Type B (PCR) Negative (NEGATIVE) 03/14/21 00:07 RSV (PCR) Negative (NEGATIVE) 03/14/21 00:07 Review of Systems Constitutional: No Symptoms Reported Eyes: No Symptoms Reported ENT: No Symptoms Reported Respiratory: Shortness of Breath and Wheezing Cardiovascular: No Symptoms Reported Gastrointestinal: No Symptoms Reported Genitourinary: No Symptoms Reported Musculoskeletal: No Symptoms Reported Skin: No Symptoms Reported Neurological: No Symptoms Reported Physical Exam Vital Signs: Temperature 98.1 F Pulse Rate [Radial] 71 Pulse Rate 78 Respiratory Rate 22 Blood Pressure [Left Arm] 141/67 Blood Pressure 142/65 O2 Sat by Pulse Oximetry 91 Oriented: Normal Eyes: Normal Ear: Normal Nose: Normal Throat: Normal Respiratory: Diminished Throughout Cardiovascular: Normal : Normal Auscultation: Bowel Sounds: Normal Palpation: Normal Tenderness: Normal Skin: Normal Musculoskeletal: Normal Psychiatric: Normal Mood Description: Calm and Appropriate Affect: Normal Speech Pattern: Clear and Appropriate Assessment/Plan (1) COPD with acute exacerbation: Status: Acute Plan: Supplemental O2, IV Solumedrol Bronchodilators. Review H&P Reviewed: Yes Patient was examined?: Yes
[2021-03-14] MEDS: K-DUR TAB 20 MEQ PO PRN (12:10)
[2021-03-14] MEDS: ZANAFLEX PO PRN (13:51)
[2021-03-14 16:40] LABS: CKMB % 5.5 % (<4); TROPONIN I 0.02 ng/mL (0-1.5)
[2021-03-14 16:42] LABS: CREATINE KINASE MB 4.9 ng/mL (0-4.0)
[2021-03-14] MEDS: SOLU-Medrol 40 MG VIAL IVP SCH (21:09)
[2021-03-15] MEDS: PROVENTIL NEB TX 0.083% 2.5MG/ 3ML NEB SCH ×6 (00:07→21:00)
[2021-03-15 04:59] LABS: BASOPHILS % (AUTO) 0.3 % (0.2-1.0); HEMATOCRIT 42.6 % (36.0-47.0); HEMOGLOBIN 14.6 g/dL (12.0-16.0); LYMPHOCYTES # (AUTO) 0.4 X10^3/uL (1.3-2.9); LYMPHOCYTES % (AUTO) 4.8 % (21.0-51.0); MEAN CORPUSCULAR HEMOGLOBIN 31.5 pg (27.0-34.0); MEAN CORPUSCULAR HGB CONC 34.3 g/dL (33.0-35.0); MEAN CORPUSCULAR VOLUME 91.8 fL (80.0-100.0); MEAN PLATELET VOLUME 8.3 fL (7.4-11.0); MONOCYTES # (AUTO) 0.1 x10^3/uL (0.3-0.8); MONOCYTES % (AUTO) 1.2 % (0.0-13.0); NEUTROPHILS # (AUTO) 8.2 x10^3/uL (2.2-4.8); NEUTROPHILS % (AUTO) 93.7 % (42.0-75.0); PLATELET COUNT 239 X10^3/uL (150.0-450.0); RED BLOOD COUNT 4.63 X10^6/uL (3.5-5.4); RED CELL DISTRIBUTION WIDTH 14.3 % (11.6-16.5); WHITE BLOOD COUNT 8.7 X10^3/uL (3.6-10.0)
[2021-03-15 05:17] LABS: ALANINE AMINOTRANSFERASE 34 Units/L (12-78); ALBUMIN 3.2 g/dL (3.4-5.0); ALKALINE PHOSPHATASE 70 Units/L (46-116); ASPARTATE AMINO TRANSFERASE 33 Units/L (15-37); BLOOD UREA NITROGEN 12 mg/dL (7-18); CALCIUM 8.9 mg/dL (8.5-10.1); CARBON DIOXIDE 38.2 mmol/L (21-32); CHLORIDE 102 mmol/L (98-107); COR CA(FOR HYPOALB) 9.5 mg/dL (8.5-10.1); COR NA(FOR HYPERGLY) 144 mmol/L (136-145); CREATININE 0.71 mg/dL (0.55-1.02); SODIUM 143 mmol/L (136-145); TOTAL PROTEIN 6.2 g/dL (6.4-8.2); eGFR NON BLACK RACES > 60 (>60)
[2021-03-15 05:22] LABS: PLATELET MORPHOLOGY COMMENT NORMAL (NORMAL)
--- NOTE | 2021-03-15 05:53 | RAD ---
PROCEDURE: Chest X-ray 1 View .HISTORY: Dyspnea.TECHNIQUE: AP portable view done at 5:15 a.m..COMPARISON: 03/13/2021.TECHNICAL QUALITY: Satisfactory .FINDINGS:Unremarkable cardio mediastinal silhouette.Normal central vascularity.Unchanged emphysematous changes and interstitial fibrosis. No pulmonary consolidation, pleural fluid, or pneumothorax.IMPRESSION:1. Unchanged COPD and interstitial fibrosis.2. No other acute change identified.Electronically signed by: Avila Retana (Mar 15, 2021 05:50:31)
[2021-03-15] MEDS: SOLU-Medrol 40 MG VIAL IVP SCH ×2 (08:44→20:07)
[2021-03-15] MEDS: K-DUR TAB 20 MEQ PO PRN (08:47)
[2021-03-15] MEDS: PULMICORT NEB TX 0.5 MG NEB SCH ×2 (08:58→21:00)
--- NOTE | 2021-03-15 11:06 | PCM.PROG ---
Progress Note - Progress Note for Day of Date of Exam: 03/15/21 - Subjective Subjective: WAS ADMITTED ON 03/14 FOR COPD WITH ACUTE EXACERBATION. SHE USES HOME OXYGEN AND TRILOGY AT NIGHT. SHE INITIALLY HAD CHEST PAIN ON ADMISSION. TODAY, SHE IS ALERT AND ORIENTED, SITTING UP IN BED ON MORNING ROUNDS. SHE CONTINUES WITH COMPLAINTS OF SHORTNESS OF BREATH. SHE ALSO HAS A CHRONIC, NON-PRODUCTIVE COUGH. SHE DENIES CHEST PAIN THIS MORNING. ON EXAMINATION, HEART IS REGULAR IN RATE AND RHYTHM. BILATERAL LUNGS ARE NOTED TO HAVE SCATTERED WHEEZING THROUGHOUT. ABDOMEN IS FLAT, SOFT, AND NON-TENDER WITH NORMAL BOWEL SOUNDS NOTED IN ALL QUADRANTS. HER VITALS THIS MORNING ARE: 97. 8-92-18-95%-157/69. LABS WERE OBTAINED. ABNORMAL LAB VALUES INCLUDE THE FOLLOWING: CARBON DIOXIDE 38.2, GLUCOSE 144, TOTAL PROTEIN 6.2, ALBUMIN 3.2. A CHEST XRAY WAS OBTAINED AND REVEALED: 1. Unchanged COPD and interstitial fibrosis. 2. No other acute change identified. SHE IS CURRENTLY RECEIVING SOLU- MEDROL 40MG IV Q12H, ALBUTEROL NEBS Q4H, PULMICORT NEBS BID, TIZANIDINE 4MG PO Q12H PRN, AND THE POTASSIUM AND MAGNESIUM PROTOCOLS. WE WILL CONTINUE WITH CURRENT PLAN OF CARE TODAY. OTHERWISE, WE PLAN TO FOLLOW UP WITH AM LABS AND CONTINUE TO MONITOR. TIME SPENT ON CLINICAL ASSESSMENT, REVIEWING LABS AND IMAGING, DECISION MAKING, AND DOCUMENTATION GREATER THAN 45 MINUTES. - Past Medical Family Social History Past Med/Fam/Surg Hx: No changes since H&P Allergies: Allergies No Known Drug Allergies Allergy (Verified 04/18/19 23:01) - Review of Systems ROS: No change since H&P - Vital Signs and I&O's Vital Signs: Temperature 97.8 F Pulse Rate [Radial] 92 Pulse Rate 92 Respiratory Rate 18 Blood Pressure [Left Arm] 157/69 Blood Pressure 142/65 O2 Sat by Pulse Oximetry 95 Intake and Output: Intake & Output 03/12/21 03/13/21 03/14/21 03/15/21 11:59 11:59 11:59 11:59 Intake Total 1400 / 1400 Balance 1400 / 1400 - Physical Exam Oriented: Normal Eyes: Normal Ear: Normal Nose: Normal Throat: Normal Respiratory: Generalized, Wheezes Cardiovascular: Normal : Normal Auscultation: Bowel Sounds: Normal Palpation: Normal Tenderness: Normal Skin: Normal Musculoskeletal: Normal Psychiatric: Normal Mood Description: Calm, Appropriate Affect: Normal Speech Pattern: Clear, Appropriate - Laboratory and Diagnostics Result Diagrams: 03/15/21 04:24 03/15/21 04:24 Labs: Laboratory WBC 8.7 X10^3/uL (3.6-10.0) 03/15/21 04:24 RBC 4.63 X10^6/uL (3.5-5.4) 03/15/21 04:24 Hgb 14.6 g/dL (12.0-16.0) 03/15/21 04:24 Hct 42.6 % (36.0-47.0) 03/15/21 04:24 MCV 91.8 fL (80.0-100.0) 03/15/21 04:24 MCH 31.5 pg (27.0-34.0) 03/15/21 04:24 MCHC 34.3 g/dL (33.0-35.0) 03/15/21 04:24 RDW 14.3 % (11.6-16.5) 03/15/21 04:24 Plt Count 239 X10^3/uL (150.0-450.0) 03/15/21 04:24 Plt Count Comment Adequate (ADEQUATE) 03/15/21 04:24 MPV 8.3 fL (7.4-11.0) 03/15/21 04:24 Neut % (Auto) 93.7 % (42.0-75.0) H 03/15/21 04:24 Lymph % (Auto) 4.8 % (21.0-51.0) L 03/15/21 04:24 [place] % (Auto) 1.2 % (0.0-13.0) 03/15/21 04:24 Eos % (Auto) 0.0 % (0.9-2.9) L 03/15/21 04:24 Baso % (Auto) 0.3 % (0.2-1.0) 03/15/21 04:24 Neut # (Auto) 8.2 x10^3/uL (2.2-4.8) H 03/15/21 04:24 Lymph # (Auto) 0.4 X10^3/uL (1.3-2.9) L 03/15/21 04:24 [place] # (Auto) 0.1 x10^3/uL (0.3-0.8) L 03/15/21 04:24 Eos # (Auto) 0.0 x10^3/uL (0.0-0.2) 03/15/21 04:24 Baso # (Auto) 0.0 X10^3/uL (0.0-0.1) 03/15/21 04:24 Absolute Nucleated RBC 0.0 /100WBC 03/15/21 04:24 Total Counted 100 03/15/21 04:24 Neutrophils % (Manual) 95 % (39-76) H 03/15/21 04:24 Lymphocytes % (Manual) 4 % (13-43) L 03/15/21 04:24 Monocytes % (Manual) 1 % (4-9) L 03/15/21 04:24 Plt Morphology Comment Normal (NORMAL) 03/15/21 04:24 RBC Morphology Normal (NORMAL) 03/15/21 04:24 Sample Site Rba 03/13/21 23:53 ABG pH 7.480 (7.35-7.45) H 03/13/21 23:53 ABG pCO2 61.0 mmHg (35.0-45.0) H* 03/13/21 23:53 ABG pO2 54.0 mmHg (80.0-100.0) L 03/13/21 23:53 ABG HCO3 45.4 mmol/L (22-26) H* 03/13/21 23:53 ABG O2 Saturation 90.0 % (90-100) 03/13/21 23:53 ABG Base Excess 18.7 mmol/L (-2.0-2.0) H 03/13/21 23:53 Xavier Test Pos 03/13/21 23:53 A-a Gradient 98.0 mmHg 03/13/21 23:53 FiO2 32.0 03/13/21 23:53 Blood Gas Comments Kayla well mts 03/13/21 23:53 Sodium 143 mmol/L (136-145) 03/15/21 04:24 Corrected Sodium 144 mmol/L (136-145) 03/15/21 04:24 Potassium 3.7 mmol/L (3.5-5.1) 03/15/21 04:24 Chloride 102 mmol/L (98-107) 03/15/21 04:24 Carbon Dioxide 38.2 mmol/L (21-32) H 03/15/21 04:24 BUN 12 mg/dL (7-18) 03/15/21 04:24 Creatinine 0.71 mg/dL (0.55-1.02) 03/15/21 04:24 Est GFR (MDRD) Af Amer > 60 (>60) 03/15/21 04:24 Est GFR (MDRD) Non-Af > 60 (>60) 03/15/21 04:24 Glucose 144 mg/dL (65-99) H 03/15/21 04:24 Calcium 8.9 mg/dL (8.5-10.1) 03/15/21 04:24 Corrected Calcium 9.5 mg/dL (8.5-10.1) 03/15/21 04:24 Magnesium 2.2 mg/dL (1.7-2.9) 03/14/21 05:14 Total Bilirubin 0.60 mg/dL (0.2-1.0) 03/15/21 04:24 AST 33 Units/L (15-37) 03/15/21 04:24 ALT 34 Units/L (12-78) 03/15/21 04:24 Alkaline Phosphatase 70 Units/L (46-116) 03/15/21 04:24 Creatine Kinase 89 Units/L (26-192) 03/14/21 15:40 CK-MB (CK-2) 4.9 ng/mL (0-4.0) H* 03/14/21 15:40 CK/CKMB % Calc 5.5 % (<4) 03/14/21 15:40 Troponin I 0.02 ng/mL (0-1.5) 03/14/21 15:40 Total Protein 6.2 g/dL (6.4-8.2) L 03/15/21 04:24 Albumin 3.2 g/dL (3.4-5.0) L 03/15/21 04:24 Globulin 3.0 g/dL (2.5-4.5) 03/15/21 04:24 Albumin/Globulin Ratio 1.1 Ratio (1.1-2.1) 03/15/21 04:24 SARS-CoV-2 (PCR) Negative (NEGATIVE) 03/14/21 00:07 Influenza Type A (PCR) Negative (NEGATIVE) 03/14/21 00:07 Influenza Type B (PCR) Negative (NEGATIVE) 03/14/21 00:07 RSV (PCR) Negative (NEGATIVE) 03/14/21 00:07 - Plan (1) COPD with acute exacerbation Status: Acute Plan: SOLU-MEDROL 40MG IV Q12H, ALBUTEROL NEBS Q4H, PULMICORT NEBS BID, TIZANIDINE 4MG PO Q12H PRN, AND THE POTASSIUM AND MAGNESIUM PROTOCOLS.
[2021-03-15] MEDS ORDERED: XANAX PO PRN (14:59)
[2021-03-15] MEDS: NORVASC TAB 10 MG PO SCH (16:12)
[2021-03-15] MEDS: THEO-DUR TAB 300 MG 12-HR PO SCH (16:12)
[2021-03-15] MEDS ORDERED: TOPROL XL PO ONE (19:55)
[2021-03-15] MEDS ORDERED: ASPIRIN EC 81 MG PO ONE (19:55)
[2021-03-15] MEDS ORDERED: SOLU-Medrol 40 MG VIAL ONE (19:56)
[2021-03-15] MEDS ORDERED: CRESTOR TAB 10 MG PO ONE (19:56)
[2021-03-15] MEDS ORDERED: NEURONTIN CAP 300 MG ONE (19:56)
[2021-03-15] MEDS ORDERED: PriLOSEC PO ONE (19:56)
[2021-03-15] MEDS ORDERED: SINGULAIR TAB 10 MG ONE (19:56)
[2021-03-15] MEDS: TOPROL XL PO SCH (20:08)
[2021-03-15] MEDS ORDERED: PriLOSEC PO SCH (21:00)
[2021-03-15] MEDS ORDERED: ASPIRIN EC 81 MG PO SCH (21:00)
[2021-03-15] MEDS ORDERED: SINGULAIR TAB 10 MG PO SCH (21:00)
[2021-03-15] MEDS ORDERED: NEURONTIN CAP 300 MG PO SCH (21:00)
[2021-03-15] MEDS ORDERED: CRESTOR TAB 10 MG PO SCH (21:00)
[2021-03-15] MEDS: ZANAFLEX PO PRN (22:23)
[2021-03-16] MEDS: PROVENTIL NEB TX 0.083% 2.5MG/ 3ML NEB SCH ×3 (00:37→09:44)
[2021-03-16 05:09] LABS: BASOPHILS % (AUTO) 0 % (0.2-1.0); HEMATOCRIT 41.6 % (36.0-47.0); HEMOGLOBIN 14.2 g/dL (12.0-16.0); LYMPHOCYTES # (AUTO) 0.5 X10^3/uL (1.3-2.9); MEAN CORPUSCULAR HEMOGLOBIN 31.4 pg (27.0-34.0); MEAN CORPUSCULAR HGB CONC 34.1 g/dL (33.0-35.0); MEAN PLATELET VOLUME 8.2 fL (7.4-11.0); MONOCYTES # (AUTO) 0.4 x10^3/uL (0.3-0.8); MONOCYTES % (AUTO) 2.9 % (0.0-13.0); NEUTROPHILS # (AUTO) 12.2 x10^3/uL (2.2-4.8); NEUTROPHILS % (AUTO) 93.1 % (42.0-75.0); PLATELET COUNT 247 X10^3/uL (150.0-450.0); RED BLOOD COUNT 4.52 X10^6/uL (3.5-5.4); RED CELL DISTRIBUTION WIDTH 14.5 % (11.6-16.5); WHITE BLOOD COUNT 13.1 X10^3/uL (3.6-10.0)
[2021-03-16 05:20] LABS: ALANINE AMINOTRANSFERASE 45 Units/L (12-78); ALBUMIN 3.2 g/dL (3.4-5.0); ALKALINE PHOSPHATASE 70 Units/L (46-116); ASPARTATE AMINO TRANSFERASE 45 Units/L (15-37); BLOOD UREA NITROGEN 14 mg/dL (7-18); CALCIUM 8.5 mg/dL (8.5-10.1); CARBON DIOXIDE 36.4 mmol/L (21-32); CHLORIDE 101 mmol/L (98-107); COR CA(FOR HYPOALB) 9.1 mg/dL (8.5-10.1); COR NA(FOR HYPERGLY) 141 mmol/L (136-145); CREATININE 0.58 mg/dL (0.55-1.02); SODIUM 140 mmol/L (136-145); TOTAL PROTEIN 6.1 g/dL (6.4-8.2); eGFR NON BLACK RACES > 60 (>60)
[2021-03-16 05:34] LABS: BAND NEUTROPHILS % 3 % (0-10); PLATELET MORPHOLOGY COMMENT NORMAL (NORMAL)
--- NOTE | 2021-03-16 06:22 | RAD ---
HISTORYSOBSTUDYCHEST, 1 [id number]/19/21.TECHNIQUEAP view of the chestFINDINGSCardiac and mediastinal contours are within normal limits. Moderate atherosclerotic plaque at the aortic knob. Lungs are hyperexpanded with stable diffuse interstitial opacities. Blunted costophrenic sulci. No large pleural effusion. No pneumothorax.IMPRESSIONNo significant change. Unchanged COPD with interstitial opacities that may represent chronic fibrosis.Electronically signed by: Charlie Riley (Mar 16, 2021 06:20:21)
[2021-03-16 08:13] VITALS: BP 164/72
[2021-03-16] MEDS: TOPROL XL PO SCH (09:27)
[2021-03-16] MEDS: SOLU-Medrol 40 MG VIAL IVP SCH (09:27)
[2021-03-16] MEDS: NORVASC TAB 10 MG PO SCH (09:27)
[2021-03-16] MEDS: THEO-DUR TAB 300 MG 12-HR PO SCH (09:27)
[2021-03-16] MEDS: PULMICORT NEB TX 0.5 MG NEB SCH (09:44)
== END 2021-03-16 13:00 | disposition hospice, home (50) ==
LOC: ER 23:00 → MED/SURG 23:00 → ER 23:50 → MED/SURG 03-14 02:43
PROVIDERS: ADMIT Internal Medicine; ATTEND Internal Medicine
DX: E87.6 Hypokalemia; I10 Essential (primary) hypertension; Z20.822 Contact with and (suspected) exposure to COVID-19; R74.8 Abnormal levels of other serum enzymes; R07.89 Other chest pain; R94.31 Abnormal electrocardiogram [ECG] [EKG]; R26.89 Other abnormalities of gait and mobility; Z99.81 Dependence on supplemental oxygen; J44.1 Chronic obstructive pulmonary disease with (acute) exacerbation

== ENCOUNTER 2021-04-04 23:43 | Inpatient (IN) ==
--- NOTE | 2021-04-05 00:06 | DR.SOBA ---
HPI Time Seen Time Seen by Provider: 04/04/21 23:47 PMH PMH Past Medical History: COPD, Dyslipidemia, GERD, Hypertension and Sleep Apnea Past Surgical History: Yes Surgical History: Social History Do you use any recreational Drugs:: No PE Vital Signs Vitals: Temperature 99.1 F Pulse Rate 101 Respiratory Rate 44 Blood Pressure [Left Arm] 164/72 Blood Pressure 192/78 O2 Sat by Pulse Oximetry 99 ROR Labs Reviewed Result Diagrams: 04/05/21 00:17 04/05/21 00:17 Laboratory: WBC 30.1 X10^3/uL (3.6-10.0) H* 04/05/21 00:17 RBC 5.09 X10^6/uL (3.5-5.4) 04/05/21 00:17 Hgb 16.2 g/dL (12.0-16.0) H 04/05/21 00:17 Hct 47.8 % (36.0-47.0) H 04/05/21 00:17 MCV 93.8 fL (80.0-100.0) 04/05/21 00:17 MCH 31.7 pg (27.0-34.0) 04/05/21 00:17 MCHC 33.8 g/dL (33.0-35.0) 04/05/21 00:17 RDW 14.6 % (11.6-16.5) 04/05/21 00:17 Plt Count 294 X10^3/uL (150.0-450.0) 04/05/21 00:17 Plt Count Comment Adequate (ADEQUATE) 04/05/21 00:17 MPV 8.0 fL (7.4-11.0) 04/05/21 00:17 Neut % (Auto) 92.2 % (42.0-75.0) H 04/05/21 00:17 Lymph % (Auto) 3.1 % (21.0-51.0) L 04/05/21 00:17 [place] % (Auto) 3.9 % (0.0-13.0) 04/05/21 00:17 Eos % (Auto) 0.2 % (0.9-2.9) L 04/05/21 00:17 Baso % (Auto) 0.6 % (0.2-1.0) 04/05/21 00:17 Neut # (Auto) 27.7 x10^3/uL (2.2-4.8) H 04/05/21 00:17 Lymph # (Auto) 0.9 X10^3/uL (1.3-2.9) L 04/05/21 00:17 Hartley # (Auto) 1.2 x10^3/uL (0.3-0.8) H 04/05/21 00:17 Eos # (Auto) 0.1 x10^3/uL (0.0-0.2) 04/05/21 00:17 Baso # (Auto) 0.2 X10^3/uL (0.0-0.1) H 04/05/21 00:17 Absolute Nucleated RBC 0.0 /100WBC 04/05/21 00:17 Total Counted 100 04/05/21 00:17 Neutrophils % (Manual) 93 % (39-76) H 04/05/21 00:17 Lymphocytes % (Manual) 1 % (13-43) L 04/05/21 00:17 Monocytes % (Manual) 6 % (4-9) 04/05/21 00:17 Plt Morphology Comment Normal (NORMAL) 04/05/21 00:17 RBC Morphology Normal (NORMAL) 04/05/21 00:17 Sample Site Right brachial 04/05/21 00:15 ABG pH 7.460 (7.35-7.45) H 04/05/21 00:15 ABG pCO2 63.0 mmHg (35.0-45.0) H* 04/05/21 00:15 ABG pO2 47.0 mmHg (80.0-100.0) L* 04/05/21 00:15 ABG HCO3 44.8 mmol/L (22-26) H* 04/05/21 00:15 ABG O2 Saturation 85.0 % (90-100) L 04/05/21 00:15 ABG Base Excess 17.8 mmol/L (-2.0-2.0) H 04/05/21 00:15 Xavier Test Not performed 04/05/21 00:15 A-a Gradient 131.0 mmHg 04/05/21 00:15 FiO2 36.0 04/05/21 00:15 Blood Gas Comments Pulse ox 92% 04/05/21 00:15 Sodium 145 mmol/L (136-145) 04/05/21 00:17 Corrected Sodium TNP 04/05/21 00:17 Potassium 3.1 mmol/L (3.5-5.1) L 04/05/21 00:17 Chloride 100 mmol/L (98-107) 04/05/21 00:17 Carbon Dioxide 39.1 mmol/L (21-32) H 04/05/21 00:17 BUN 10 mg/dL (7-18) 04/05/21 00:17 Creatinine 0.66 mg/dL (0.55-1.02) 04/05/21 00:17 Est GFR (MDRD) Af Amer > 60 (>60) 04/05/21 00:17 Est GFR (MDRD) Non-Af > 60 (>60) 04/05/21 00:17 Glucose 87 mg/dL (65-99) 04/05/21 00:17 Lactic Acid 1.6 mmol/L (0.4-2.0) 04/05/21 01:26 Calcium 8.9 mg/dL (8.5-10.1) 04/05/21 00:17 Corrected Calcium TNP 04/05/21 00:17 Total Bilirubin 0.80 mg/dL (0.2-1.0) 04/05/21 00:17 AST 35 Units/L (15-37) 04/05/21 00:17 ALT 30 Units/L (12-78) 04/05/21 00:17 Alkaline Phosphatase 82 Units/L (46-116) 04/05/21 00:17 Creatine Kinase 173 Units/L (26-192) 04/05/21 00:17 CK-MB (CK-2) 11.2 ng/mL (0-4.0) H* 04/05/21 00:17 CK/CKMB % Calc 6.5 % (<4) 04/05/21 00:17 Troponin I < 0.02 ng/mL (0-1.5) 04/05/21 00:17 Total Protein 7.3 g/dL (6.4-8.2) 04/05/21 00:17 Albumin 3.9 g/dL (3.4-5.0) 04/05/21 00:17 Globulin 3.4 g/dL (2.5-4.5) 04/05/21 00:17 Albumin/Globulin Ratio 1.1 Ratio (1.1-2.1) 04/05/21 00:17 SARS-CoV-2 (PCR) Negative (NEGATIVE) 04/05/21 00:01 Influenza Type A (PCR) Negative (NEGATIVE) 04/05/21 00:01 Influenza Type B (PCR) Negative (NEGATIVE) 04/05/21 00:01 RSV (PCR) Negative (NEGATIVE) 04/05/21 00:01 Opioid Opioid Risk Tool Age (Aleksey box if 16-45): No History of Preadolescent Sexual Abuse: No Total: 0 Total Score Risk Category: Low Risk Copyright: Paresh OLSON predicting aberrant behaviors Diagnosis Discharge Problem: Pneumonia, COPD exacerbation Instructions Forms: Precautions for COVID19 Patient Portal Social Distancing
[2021-04-05 00:11] VITALS: BMI 12.9
[2021-04-05 00:19] LABS: ABG BASE EXCESS 17.8 mmol/L (-2.0-2.0)
[2021-04-05 00:21] LABS: ABG HCO3 44.8 mmol/L (22-26)
[2021-04-05 00:22] LABS: ABG ALLEN TEST NOT PERFORMED
--- NOTE | 2021-04-05 00:32 | RAD ---
PROCEDURE: Chest X-ray 1 View .HISTORY: Dyspnea.TECHNIQUE: AP view .COMPARISON: 03/16/2021.TECHNICAL QUALITY: Satisfactory .FINDINGS:Normal size heart .Mediastinum and hilar regions show no masses or lymphadenopathy .Normal central vascularity .Consolidation right base consistent with pneumonia with no pleural fluid or pneumothorax.Emphysematous changes bilaterally with hyperlucency and hyper expansion. No pleural fluid or pneumothorax.No acute bony abnormality .IMPRESSION:1. Right basilar pneumonia is appeared since previous study.2. COPD.Electronically signed by: Avila Retana (Apr 05, 2021 00:29:59)
[2021-04-05] MEDS ORDERED: SOLU-Medrol 125 MG VIAL IVP ONE (00:45)
[2021-04-05] MEDS ORDERED: DUONEB 0.5 MG/3 MG (3 mL) NEB ONE ×2 (00:45→00:53)
[2021-04-05 00:59] LABS: ALANINE AMINOTRANSFERASE 30 Units/L (12-78); ALBUMIN 3.9 g/dL (3.4-5.0); ALKALINE PHOSPHATASE 82 Units/L (46-116); ASPARTATE AMINO TRANSFERASE 35 Units/L (15-37); BLOOD UREA NITROGEN 10 mg/dL (7-18); CALCIUM 8.9 mg/dL (8.5-10.1); CARBON DIOXIDE 39.1 mmol/L (21-32); CHLORIDE 100 mmol/L (98-107); CREATININE 0.66 mg/dL (0.55-1.02); SODIUM 145 mmol/L (136-145); TOTAL PROTEIN 7.3 g/dL (6.4-8.2); eGFR NON BLACK RACES > 60 (>60)
[2021-04-05 01:05] LABS: BASOPHILS # (AUTO) 0.2 X10^3/uL (0.0-0.1); HEMOGLOBIN 16.2 g/dL (12.0-16.0); LYMPHOCYTES # (AUTO) 0.9 X10^3/uL (1.3-2.9)
[2021-04-05 01:09] LABS: BASOPHILS % (AUTO) 0.6 % (0.2-1.0); EOSINOPHILS # (AUTO) 0.1 x10^3/uL (0.0-0.2); EOSINOPHILS % (AUTO) 0.2 % (0.9-2.9); HEMATOCRIT 47.8 % (36.0-47.0); LYMPHOCYTES % (AUTO) 3.1 % (21.0-51.0); MEAN CORPUSCULAR HEMOGLOBIN 31.7 pg (27.0-34.0); MEAN CORPUSCULAR HGB CONC 33.8 g/dL (33.0-35.0); MEAN CORPUSCULAR VOLUME 93.8 fL (80.0-100.0); MONOCYTES # (AUTO) 1.2 x10^3/uL (0.3-0.8); MONOCYTES % (AUTO) 3.9 % (0.0-13.0); NEUTROPHILS # (AUTO) 27.7 x10^3/uL (2.2-4.8); NEUTROPHILS % (AUTO) 92.2 % (42.0-75.0); PLATELET COUNT 294 X10^3/uL (150.0-450.0); RED BLOOD COUNT 5.09 X10^6/uL (3.5-5.4); RED CELL DISTRIBUTION WIDTH 14.6 % (11.6-16.5)
[2021-04-05] MEDS ORDERED: SOLU-Medrol 125 MG VIAL ONE (01:09)
[2021-04-05 01:13] LABS: WHITE BLOOD COUNT 30.1 X10^3/uL (3.6-10.0)
[2021-04-05 01:35] LABS: CKMB % 6.5 % (<4); CREATINE KINASE 173 Units/L (26-192); TROPONIN I < 0.02 ng/mL (0-1.5)
[2021-04-05 01:42] LABS: CREATINE KINASE MB 11.2 ng/mL (0-4.0)
[2021-04-05 02:00] LABS: PLATELET MORPHOLOGY COMMENT NORMAL (NORMAL)
[2021-04-05] MEDS ORDERED: KLOR-CON PO ONE (02:39)
[2021-04-05] MEDS ORDERED: ZOSYN VIAL 3.375 GRAMS 3.375 G in NS 100 ML IV + SPIKE MINIBAG* 100 ML IV ONE (02:40)
[2021-04-05] MEDS ORDERED: KLOR-CON ONE (03:11)
[2021-04-05] MEDS ORDERED: NS 100 ML IV 100 ML ONE (03:17)
[2021-04-05] MEDS ORDERED: NS 1000 ML 1,000 ML ONE (03:57)
[2021-04-05] MEDS: NS 1000 ML 1,000 ML IV SCH (04:15)
[2021-04-05 04:51] LABS: BILIRUBIN,URINE NEGATIVE (NEGATIVE); BLOOD/HEMOGLOBIN,URINE 1+ (NEGATIVE); GLUCOSE, URINE NEGATIVE (NEGATIVE); KETONES,URINE NEGATIVE (NEGATIVE); LEUKOCYTE ESTERASE ,URINE 1+ (NEGATIVE); NITRITES,URINE NEGATIVE (NEGATIVE); PROTEIN,URINE 2+ (NEGATIVE); UROBILINOGEN,URINE NORMAL (NORMAL)
[2021-04-05 04:54] LABS: APPEARANCE,URINE CLEAR (CLEAR); COLOR,URINE YELLOW (YELLOW); RBC,URINE 0-2 /HPF (0-3)
[2021-04-05 05:06] LABS: BACTERIA,URINE NEGATIVE /HPF (NEGATIVE); SQUAMOUS EPITHELIAL CELL,UR NEGATIVE /HPF (NEGATIVE)
[2021-04-05] MEDS ORDERED: XANAX PO PRN (05:10)
[2021-04-05] MEDS ORDERED: NS 1/2 1000 ML IV 1,000 ML IV SCH (05:10)
[2021-04-05] MEDS ORDERED: VENTOLIN or PROAIR HFA IN PRN (05:10)
[2021-04-05] MEDS ORDERED: GUAIFENESIN 600 MG PO SCH (05:10)
[2021-04-05] MEDS: ZANAFLEX PO SCH ×2 (08:24→20:57)
[2021-04-05] MEDS: SINGULAIR TAB 10 MG PO SCH ×2 (08:24→20:57)
[2021-04-05] MEDS: MUCINEX EXPECTORANT PO SCH ×2 (08:25→20:58)
[2021-04-05] MEDS: TOPROL XL PO SCH ×2 (08:25→20:58)
[2021-04-05] MEDS: NORVASC TAB 10 MG PO SCH (08:26)
[2021-04-05] MEDS: THEO-DUR TAB 300 MG 12-HR PO SCH ×2 (08:26→20:57)
[2021-04-05] MEDS: VSL#3 PO SCH (08:27)
[2021-04-05] MEDS ORDERED: LEVAQUIN PREMIX IV 500 MG 500 MG/100 ML BAG IV SCH (09:00)
[2021-04-05] MEDS ORDERED: FORTAZ or TAZICEF VIAL INJ 1 G in NS 100 ML IV + SPIKE MINIBAG* 100 ML IV SCH (09:00)
[2021-04-05] MEDS ORDERED: PREDNISONE TAB 10 MG PO SCH (09:00)
[2021-04-05] MEDS: PROVENTIL NEB TX 0.083% 2.5MG/ 3ML IN SCH ×4 (09:20→21:45)
[2021-04-05] MEDS: PULMICORT NEB TX 0.5 MG NEB SCH ×2 (09:20→21:45)
[2021-04-05] MEDS: SOLU-Medrol 40 MG VIAL IVP SCH ×4 (11:43→20:59)
--- NOTE | 2021-04-05 13:06 | DR.H&P ---
H&P - History & Physical for Day of: H&P Date: 04/05/21 - Chief Complaint Chief Complaint: SOB, COUGH - History of Present Illness History of Present Illness: IS A 65 YEAR OLD PATIENT OF OURS. SHE PRESENTED TO THE ER VIA EMS LAST NIGHT WITH COMPLAINTS OF SHORTNESS OF BREATH AND NON-PRODUCTIVE COUGH. SYMPTOMS STARTED EARLIER IN THE DAY. PATIENT IS CURRENTLY A HOSPICE PATIENT AND IS ON HOME OXYGEN. SHE REPORTS THAT HER OXYGEN SATURATION OS 4L/NC WERE 87%. PATIENT DOES HAVE A KNOW HISTORY OF COPD. SHE ADMITS TO FEVER TODAY. PATIENT IS CURRENTLY ON ALBUTEROL NEBULIZERS, TRELEGY INHALER, AND ALBUTEROL INHALER. SHE ALSO TAKES PREDNISONE 10MG PO BID. ON EXAMINATION, AUSCULTATION OF LUNG WALLACE REVEALED SCATTERED WHEEZING. ON ARRIVAL TO THE HOSPITAL, VITALS WERE [id number]%NC-177/95. LABS WERE OBTAINED. ABNORMAL LAB VALUES INCLUDE THE FOLLOWING: WBC 30.1, HGB 16.2, HCT 47.8, POTASSIUM 3.1, CARBON DIOXIDE 39.1, CK-MB 11.2. COVID-19, INFLUENZA, AND RSV NEGATIVE. AN ABG WAS OBTAINED AND REVEALED: PH 7.460, PC02 63, P02 47, HC03 44.8, 02 SAT 85, BASE EXCESS 17.8, FI02 36. BLOOD CULTURES WERE SET UP. A CHEST XRAY WAS OBTAINED AND REVEALED: 1. Right basilar pneumonia is appeared since previous study. 2. COPD. IN THE ER, SHE WAS GIVEN A DUONEB X 1, SOLU-MEDROL 125MG IV X 1, KLOR-CON 20MEQ PO X 1, ZOSYN 3.375G IV X 1. SHE WAS ADMITTED TO THE HOSPITAL FOR FURTHER EVALUATION AND TREATMENT OF PNEUMONIA AND COPD EXACERBATION. SHE WAS STARTED ON NORMAL SALINE AT 30 ML/HR, VANCOMYCIN 750MG IV Q12H, ZOSYN 3.375G IV TID, SOLU-MEDROL 80MG IV Q8H, PULMICORT NEBS BID, ALBUTEROL NEBS Q4H, PROAIR INHALER QID PRN, XANAX 0.25MG PO TID PRN, NORVASC 5MG PO DAILY, MUCINEX DM 600MG PO BID, VSL 2 CAPS DAILY, TOPROL XL 50MG PO BID, SINGULAIR 10MG PO HS, ANGELLA-DUR 300MG PO BID, AND TIZANIDINE 4MG PO BID. OTHERWISE, WE PLAN TO FOLLOW UP WITH AM LABS AND CHEST XRAY AND CONTINUE TO MONITOR. WE WILL COLLECT A SPUTUM CULTURE IF SHE STARTS HAVING A PRODUCTIVE COUGH. TIME SPENT ON CLINICAL ASSESSMENT, REVIEWING LABS AND IMAGING, DECISION MAKING, AND DOCUMENTATION GREATER THAN 75 MINUTES. - Past Medical History Past Medical History: Hypertension, Dyslipidemia, COPD, GERD, Sleep Apnea - Past Surgical History Surgical History: - Family History Family Medical History: Hypertension - Social History Does patient currently use any type of tobacco product: Yes Have you used tobacco products in the last 12 months: Yes Type of Tobacco Use: Cigarettes Does any household member use tobacco: No Alcohol Use: None - Medications Home Medications: No Known Drug Allergies Allergy (Verified 04/18/19 23:01) CONTINUE taking the following medications albuterol sulfate [ProAir HFA] 1 puff INHALATION QID PRN 04/05/21 [History] alprazolam 0.25 mg PO TID PRN MDD 2 04/05/21 [History] guaifenesin [Mucus Relief ER] 600 mg PO BID 04/05/21 [History] guaifenesin [Mucus Relief ER] 600 mg PO Q12H 04/05/21 [History] morphine 5 mg PO Q4-5H PRN 04/05/21 [History] prednisone 10 mg PO BID 04/05/21 [History] tizanidine 4 mg PO BID 04/05/21 [History] - Review of Systems Constitutional: Fever, Weakness Eyes: No Symptoms Reported ENT: No Symptoms Reported Respiratory: See HPI, Cough, Shortness of Breath, SOB with Excertion, Wheezing Cardiovascular: No Symptoms Reported Gastrointestinal: No Symptoms Reported Genitourinary: No Symptoms Reported Musculoskeletal: No Symptoms Reported Skin: No Symptoms Reported Neurological: Weakness - Physical Exam Vital Signs: Temperature 97.6 F Pulse Rate [Left Radial] 96 Pulse Rate 82 Respiratory Rate 32 Blood Pressure [Left Arm] 126/55 Blood Pressure 128/60 O2 Sat by Pulse Oximetry 96 Oriented: Normal Eyes: Normal Ear: Normal Nose: Normal Throat: Normal Respiratory: Wheezes Throughout Cardiovascular: Tachycardia : Normal Auscultation: Bowel Sounds: Normal Palpation: Normal Tenderness: Normal Skin: Decreased Turgur Musculoskeletal: Normal Psychiatric: Normal Mood Description: Calm Affect: Normal Speech Pattern: Clear - Assessment/Plan (1) Pneumonia Qualifiers: Pneumonia type: due to unspecified organism Laterality: right Lung location: lower lobe of lung Qualified Code(s): J18.9 - Pneumonia, unspecified organism Status: Acute Plan: ADMIT, SUPPLEMENTAL OXYGEN, NORMAL SALINE AT 30 ML/HR, VANCOMYCIN 750MG IV Q12H, ZOSYN 3.375G IV TID, SOLU-MEDROL 80MG IV Q8H, PULMICORT NEBS BID, ALBUTEROL NEBS Q4H, PROAIR INHALER QID PRN, XANAX 0.25MG PO TID PRN, NORVASC 5MG PO DAILY, MUCINEX DM 600MG PO BID, VSL 2 CAPS DAILY, TOPROL XL 50MG PO BID, SINGULAIR 10MG PO HS, ANGELLA-DUR 300MG PO BID, AND TIZANIDINE 4MG PO BID. (2) COPD exacerbation Status: Acute - Allergies Allergies/Adverse Reactions: Allergies Allergy/AdvReac Type Severity Reaction Status Date / Time No Known Drug Allergies Allergy Verified 04/18/19 23:01
[2021-04-05] MEDS: VANCOMYCIN IV *PREMIX 750 mg/150 ML BAG 750 MG/150 ML PIGGYBACK IV SCH ×2 (13:11→20:58)
[2021-04-05] MEDS: ZOSYN VIAL 3.375 GRAMS 3.375 G in NS 100 ML IV + SPIKE MINIBAG* 100 ML IV SCH ×3 (13:41→23:45)
[2021-04-05] MEDS: ROBITUSSIN DM PO SCH ×2 (16:07→20:57)
[2021-04-05] MEDS ORDERED: CHLORASEPTIC SPRAY MT PRN (18:57)
[2021-04-05] MEDS: MUCOMYST (RESPIRATORY USE ONLY) NEB SCH (21:45)
[2021-04-06] MEDS: PROVENTIL NEB TX 0.083% 2.5MG/ 3ML IN SCH ×7 (00:47→21:00)
[2021-04-06] MEDS: SOLU-Medrol 40 MG VIAL IVP SCH ×3 (06:00→21:20)
[2021-04-06] MEDS: ZOSYN VIAL 3.375 GRAMS 3.375 G in NS 100 ML IV + SPIKE MINIBAG* 100 ML IV SCH ×3 (06:00→21:20)
[2021-04-06 06:02] LABS: BASOPHILS % (AUTO) 0.1 % (0.2-1.0); HEMATOCRIT 38.3 % (36.0-47.0); LYMPHOCYTES # (AUTO) 0.4 X10^3/uL (1.3-2.9); LYMPHOCYTES % (AUTO) 1.8 % (21.0-51.0); MEAN CORPUSCULAR HEMOGLOBIN 31.8 pg (27.0-34.0); MEAN CORPUSCULAR HGB CONC 33.9 g/dL (33.0-35.0); MEAN PLATELET VOLUME 8.2 fL (7.4-11.0); MONOCYTES # (AUTO) 0.8 x10^3/uL (0.3-0.8); MONOCYTES % (AUTO) 3.4 % (0.0-13.0); NEUTROPHILS # (AUTO) 21.8 x10^3/uL (2.2-4.8); NEUTROPHILS % (AUTO) 94.7 % (42.0-75.0); PLATELET COUNT 201 X10^3/uL (150.0-450.0); RED BLOOD COUNT 4.07 X10^6/uL (3.5-5.4); RED CELL DISTRIBUTION WIDTH 14.3 % (11.6-16.5); WHITE BLOOD COUNT 23.1 X10^3/uL (3.6-10.0)
[2021-04-06 06:35] LABS: ALANINE AMINOTRANSFERASE 19 Units/L (12-78); ALBUMIN 2.7 g/dL (3.4-5.0); ALKALINE PHOSPHATASE 55 Units/L (46-116); ASPARTATE AMINO TRANSFERASE 20 Units/L (15-37); BLOOD UREA NITROGEN 19 mg/dL (7-18); CALCIUM 8.7 mg/dL (8.5-10.1); CARBON DIOXIDE 36.3 mmol/L (21-32); CHLORIDE 103 mmol/L (98-107); COR CA(FOR HYPOALB) 9.7 mg/dL (8.5-10.1); COR NA(FOR HYPERGLY) 144 mmol/L (136-145); CREATININE 0.58 mg/dL (0.55-1.02); SODIUM 143 mmol/L (136-145); TOTAL PROTEIN 5.8 g/dL (6.4-8.2); eGFR NON BLACK RACES > 60 (>60)
[2021-04-06] MEDS ORDERED: K-DUR TAB 20 MEQ PO PRN (06:51)
[2021-04-06] MEDS ORDERED: POTASSIUM CHLORIDE LIQ 20 MEQ UDC PO PRN (06:51)
[2021-04-06] MEDS ORDERED: POTASSIUM CHL 60 MEQ/NS 0.45% 500 ML IV PRN (06:51)
[2021-04-06] MEDS ORDERED: KLOR-CON PO PRN (06:51)
[2021-04-06] MEDS ORDERED: POTASSIUM CHL 40 MEQ/NS 0.45% 500 ML IV PRN (06:51)
[2021-04-06] MEDS ORDERED: MICRO K EXTEN CAP 10 MEQ PO PRN (06:51)
[2021-04-06] MEDS ORDERED: K-RIDER 10 MEQ/NS 100 ML 10 MEQ/100 ML BAG IV PRN (06:51)
[2021-04-06 06:57] LABS: BAND NEUTROPHILS % 3 % (0-10)
[2021-04-06 06:58] LABS: PLATELET MORPHOLOGY COMMENT NORMAL (NORMAL)
[2021-04-06] MEDS: ROBITUSSIN DM PO SCH ×4 (08:56→20:16)
[2021-04-06] MEDS: VSL#3 PO SCH (08:56)
[2021-04-06] MEDS: NORVASC TAB 10 MG PO SCH (08:57)
[2021-04-06] MEDS: THEO-DUR TAB 300 MG 12-HR PO SCH ×2 (08:57→20:16)
[2021-04-06] MEDS: ZANAFLEX PO SCH ×2 (08:57→20:15)
[2021-04-06] MEDS: TOPROL XL PO SCH ×2 (08:57→20:16)
[2021-04-06] MEDS: MUCINEX EXPECTORANT PO SCH ×2 (08:57→20:16)
[2021-04-06] MEDS: VANCOMYCIN IV *PREMIX 750 mg/150 ML BAG 750 MG/150 ML PIGGYBACK IV SCH ×2 (08:58→20:16)
[2021-04-06] MEDS: MUCOMYST (RESPIRATORY USE ONLY) NEB SCH ×2 (09:19→21:00)
[2021-04-06] MEDS: PULMICORT NEB TX 0.5 MG NEB SCH ×2 (09:19→21:00)
--- NOTE | 2021-04-06 09:54 | RAD ---
HISTORYPNEUMONIASTUDYCHEST x-ray, 1 VIEWCOMPARISONX-ray [id number]. Persistent pneumonia in the right lower lung. Possible mild development of pneumonia in the left lower lung since prior study. No pneumothorax or pleural effusion is seen. Heart is normal in size.IMPRESSIONPersistent right lower lung pneumonia with possible development of mild left lower lung pneumonia.Electronically signed by: Jai Saucedo (Apr 06, 2021 09:34:58)
[2021-04-06 10:27] LABS: ABG BASE EXCESS 15.6 mmol/L (-2.0-2.0)
[2021-04-06 10:28] LABS: ABG HCO3 41.7 mmol/L (22-26)
[2021-04-06] MEDS ORDERED: IVERMECTIN PO SCH (12:00)
[2021-04-06] MEDS: MAGIC MOUTHWASH MT SCH ×3 (13:38→20:15)
[2021-04-06 19:29] LABS: CREATININE 0.76 mg/dL (0.55-1.02); VANCOMYCIN,TROUGH 13.6 ug/mL (15-20)
[2021-04-06] MEDS: SINGULAIR TAB 10 MG PO SCH (20:16)
[2021-04-06] MEDS ORDERED: PHARMACY COMMENT IV NR (20:30)
[2021-04-06] MEDS: NS 1000 ML 1,000 ML IV SCH (21:20)
--- NOTE | 2021-04-06 21:55 | PCM.PROG ---
Progress Note - Progress Note for Day of Date of Exam: 04/06/21 - Subjective Subjective: WAS ADMITTED FOR PNEUMONIA AND COPD EXACERBATION. SHE USES HOME OXYGEN AND TRILOGY AT NIGHT. SHE INITIALLY HAD CHEST PAIN ON ADMISSION. TODAY, SHE IS ALERT AND ORIENTED, SITTING UP IN BED ON MORNING ROUNDS. SHE CONTINUES WITH COMPLAINTS OF SHORTNESS OF BREATH AND PRODUCTIVE COUGH. SHE ALSO COMPLAINS OF SORE THROAT. SHE DENIES CHEST PAIN. ON EXAMINATION, HEART IS REGULAR IN RATE AND RHYTHM. BILATERAL LUNGS ARE NOTED TO HAVE SCATTERED WHEEZING THROUGHOUT. ABDOMEN IS FLAT, SOFT, AND NON-TENDER WITH NORMAL BOWEL SOUNDS NOTED IN ALL QUADRANTS. HER VITALS THIS MORNING ARE: 98.7-95-28-98%-140/61. LABS WERE OBTAINED. ABNORMAL LAB VALUES INCLUDE THE FOLLOWING: WBC 23.1, POTASSIUM 2.9, CARBON DIOXIDE 36.3, BUN 19, GLUCOSE 138, TOTAL PROTEIN 5.8, ALBUMIN 2.7. A CHEST XRAY WAS OBTAINED AND REVEALED: Persistent right lower lung pneumonia with possible development of mild left lower lung pneumonia. SHE IS CURRENTLY RECEIVING NORMAL SALINE AT 30 ML/HR, VANCOMYCIN 750MG IV Q12H, ZOSYN 3.375G IV TID, SOLU-MEDROL 80MG IV Q8H, PULMICORT NEBS BID, ALBUTEROL NEBS Q4H, PROAIR INHALER QID PRN, XANAX 0.25MG PO TID PRN, NORVASC 5MG PO DAILY, MUCINEX DM 600MG PO BID, VSL 2 CAPS DAILY, TOPROL XL 50MG PO BID, SINGULAIR 10MG PO HS, ANGELLA-DUR 300MG PO BID, AND TIZANIDINE 4MG PO BID. WE WILL ADD IVERMECTIN FOR COVID PRECAUTIONS AND MAGIC MOUTHWASH QID. OTHERWISE, WE PLAN TO FOLLOW UP WITH MAKI MARSH BS AND CHEST XRAY AND CONTINUE TO MONITOR. TIME SPENT ON CLINICAL ASSESSMENT, REVIEWING LABS AND IMAGING, DECISION MAKING, AND DOCUMENTATION GREATER THAN 45 MINUTES. - Past Medical Family Social History Past Med/Fam/Surg Hx: No changes since H&P Allergies: Allergies No Known Drug Allergies Allergy (Verified 04/18/19 23:01) - Review of Systems ROS: No change since H&P - Vital Signs and I&O's Vital Signs: Temperature 98.2 F Pulse Rate [Left Radial] 105 Pulse Rate 104 Respiratory Rate 22 Blood Pressure [Right Arm] 129/61 Blood Pressure [Left Arm] 145/67 Blood Pressure 128/60 O2 Sat by Pulse Oximetry 93 Intake and Output: Intake & Output 04/04/21 04/05/21 04/06/21 04/07/21 11:59 11:59 11:59 11:59 Intake Total 2352 / 2352 580 / 580 Balance 2352 / 2352 580 / 580 - Physical Exam Oriented: Normal Eyes: Normal Ear: Normal Nose: Normal Throat: Normal Respiratory: Generalized, Wheezes Cardiovascular: Normal : Normal Auscultation: Bowel Sounds: Normal Palpation: Normal Tenderness: Normal Skin: Decreased Turgur Musculoskeletal: Normal Psychiatric: Normal Mood Description: Calm Affect: Normal Speech Pattern: Clear, Appropriate - Laboratory and Diagnostics Result Diagrams: 04/06/21 05:15 04/06/21 18:16 Labs: 04/06/21 18:33 Sputum - Expectorated Sputum - Final Laboratory WBC 23.1 X10^3/uL (3.6-10.0) H 04/06/21 05:15 RBC 4.07 X10^6/uL (3.5-5.4) 04/06/21 05:15 Hgb 13.0 g/dL (12.0-16.0) D 04/06/21 05:15 Hct 38.3 % (36.0-47.0) 04/06/21 05:15 MCV 94.0 fL (80.0-100.0) 04/06/21 05:15 MCH 31.8 pg (27.0-34.0) 04/06/21 05:15 MCHC 33.9 g/dL (33.0-35.0) 04/06/21 05:15 RDW 14.3 % (11.6-16.5) 04/06/21 05:15 Plt Count 201 X10^3/uL (150.0-450.0) 04/06/21 05:15 Plt Count Comment Adequate (ADEQUATE) 04/06/21 05:15 MPV 8.2 fL (7.4-11.0) 04/06/21 05:15 Neut % (Auto) 94.7 % (42.0-75.0) H 04/06/21 05:15 Lymph % (Auto) 1.8 % (21.0-51.0) L 04/06/21 05:15 [place] % (Auto) 3.4 % (0.0-13.0) 04/06/21 05:15 Eos % (Auto) 0.0 % (0.9-2.9) L 04/06/21 05:15 Baso % (Auto) 0.1 % (0.2-1.0) L 04/06/21 05:15 Neut # (Auto) 21.8 x10^3/uL (2.2-4.8) H 04/06/21 05:15 Lymph # (Auto) 0.4 X10^3/uL (1.3-2.9) L 04/06/21 05:15 [place] # (Auto) 0.8 x10^3/uL (0.3-0.8) 04/06/21 05:15 Eos # (Auto) 0.0 x10^3/uL (0.0-0.2) 04/06/21 05:15 Baso # (Auto) 0.0 X10^3/uL (0.0-0.1) 04/06/21 05:15 Absolute Nucleated RBC 0.0 /100WBC 04/06/21 05:15 Total Counted 100 04/06/21 05:15 Neutrophils % (Manual) 95 % (39-76) H 04/06/21 05:15 Band Neutrophils % 3 % (0-10) 04/06/21 05:15 Lymphocytes % (Manual) 2 % (13-43) L 04/06/21 05:15 Monocytes % (Manual) 6 % (4-9) 04/05/21 00:17 Plt Morphology Comment Normal (NORMAL) 04/06/21 05:15 RBC Morphology Normal (NORMAL) 04/06/21 05:15 Sample Site Lbra 04/06/21 10:20 ABG pH 7.480 (7.35-7.45) H 04/06/21 10:20 ABG pCO2 56.0 mmHg (35.0-45.0) H* 04/06/21 10:20 ABG pO2 52.0 mmHg (80.0-100.0) L 04/06/21 10:20 ABG HCO3 41.7 mmol/L (22-26) H* 04/06/21 10:20 ABG O2 Saturation 89.0 % (90-100) L 04/06/21 10:20 ABG Base Excess 15.6 mmol/L (-2.0-2.0) H 04/06/21 10:20 Xavier Test N/a 04/06/21 10:20 A-a Gradient 135.0 mmHg 04/06/21 10:20 FiO2 36.0 04/06/21 10:20 Blood Gas Comments Pt albert well elj 04/06/21 10:20 Sodium 143 mmol/L (136-145) 04/06/21 05:15 Corrected Sodium 144 mmol/L (136-145) 04/06/21 05:15 Potassium 2.9 mmol/L (3.5-5.1) L* 04/06/21 05:15 Chloride 103 mmol/L (98-107) 04/06/21 05:15 Carbon Dioxide 36.3 mmol/L (21-32) H 04/06/21 05:15 BUN 19 mg/dL (7-18) H 04/06/21 05:15 Creatinine 0.76 mg/dL (0.55-1.02) 04/06/21 18:16 Est GFR (MDRD) Af Amer > 60 (>60) 04/06/21 05:15 Est GFR (MDRD) Non-Af > 60 (>60) 04/06/21 05:15 Glucose 138 mg/dL (65-99) H 04/06/21 05:15 Lactic Acid 1.6 mmol/L (0.4-2.0) 04/05/21 01:26 Calcium 8.7 mg/dL (8.5-10.1) 04/06/21 05:15 Corrected Calcium 9.7 mg/dL (8.5-10.1) 04/06/21 05:15 Magnesium 2.0 mg/dL (1.7-2.9) 04/06/21 05:15 Total Bilirubin 1.00 mg/dL (0.2-1.0) 04/06/21 05:15 AST 20 Units/L (15-37) 04/06/21 05:15 ALT 19 Units/L (12-78) 04/06/21 05:15 Alkaline Phosphatase 55 Units/L (46-116) 04/06/21 05:15 Creatine Kinase 173 Units/L (26-192) 04/05/21 00:17 CK-MB (CK-2) 11.2 ng/mL (0-4.0) H* 04/05/21 00:17 CK/CKMB % Calc 6.5 % (<4) 04/05/21 00:17 Troponin I < 0.02 ng/mL (0-1.5) 04/05/21 00:17 Total Protein 5.8 g/dL (6.4-8.2) L 04/06/21 05:15 Albumin 2.7 g/dL (3.4-5.0) L 04/06/21 05:15 Globulin 3.1 g/dL (2.5-4.5) 04/06/21 05:15 Albumin/Globulin Ratio 0.9 Ratio (1.1-2.1) L 04/06/21 05:15 Specimen Type Clean catch urine 04/05/21 04:21 Urine Color Yellow (YELLOW) 04/05/21 04:21 Urine Appearance Clear (CLEAR) 04/05/21 04:21 Urine pH 7.0 (5.0 - 8.0) 04/05/21 04:21 Ur Specific [place] 1.010 (1.000-1.030) 04/05/21 04:21 Urine Protein 2+ (NEGATIVE) 04/05/21 04:21 Urine Glucose (UA) Negative (NEGATIVE) 04/05/21 04:21 Urine Ketones Negative (NEGATIVE) 04/05/21 04:21 Urine Occult Blood 1+ (NEGATIVE) 04/05/21 04:21 Urine Nitrite Negative (NEGATIVE) 04/05/21 04:21 Urine Bilirubin Negative (NEGATIVE) 04/05/21 04:21 Urine Urobilinogen Normal (NORMAL) 04/05/21 04:21 Ur Leukocyte Esterase 1+ (NEGATIVE) 04/05/21 04:21 Urine RBC 0-2 /HPF (0-3) 04/05/21 04:21 Urine WBC 0-2 /HPF (0-5) 04/05/21 04:21 Ur Squamous Epith Cells Negative /HPF (NEGATIVE) 04/05/21 04:21 Urine Bacteria Negative /HPF (NEGATIVE) 04/05/21 04:21 Ur Culture Indicated? No/not indicated 04/05/21 04:21 Vancomycin Trough 13.6 ug/mL (15-20) L 04/06/21 18:16 SARS-CoV-2 (PCR) Negative (NEGATIVE) 04/05/21 00:01 Influenza Type A (PCR) Negative (NEGATIVE) 04/05/21 00:01 Influenza Type B (PCR) Negative (NEGATIVE) 04/05/21 00:01 RSV (PCR) Negative (NEGATIVE) 04/05/21 00:01 - Plan (1) Pneumonia Status: Acute Qualifiers: Pneumonia type: due to unspecified organism Laterality: right Lung location: lower lobe of lung Qualified Code(s): J18.9 - Pneumonia, unspecified organism Plan: SUPPLEMENTAL OXYGEN, NORMAL SALINE AT 30 ML/HR, VANCOMYCIN 750MG IV Q12H, ZOSYN 3.375G IV TID, SOLU-MEDROL 80MG IV Q8H, PULMICORT NEBS BID, ALBUTEROL NEBS Q4H, PROAIR INHALER QID PRN, XANAX 0.25MG PO TID PRN, NORVASC 5MG PO DAILY, MUCINEX DM 600MG PO BID, VSL 2 CAPS DAILY, TOPROL XL 50MG PO BID, SINGULAIR 10MG PO HS, ANGELLA-DUR 300MG PO BID, AND TIZANIDINE 4MG PO BID. (2) COPD exacerbation Status: Acute
[2021-04-07] MEDS: PROVENTIL NEB TX 0.083% 2.5MG/ 3ML IN SCH ×2 (00:41→04:45)
[2021-04-07] MEDS: SOLU-Medrol 40 MG VIAL IVP SCH (05:36)
[2021-04-07] MEDS: ZOSYN VIAL 3.375 GRAMS 3.375 G in NS 100 ML IV + SPIKE MINIBAG* 100 ML IV SCH (05:36)
--- NOTE | 2021-04-07 05:44 | RAD ---
PROCEDURE: Chest X-ray 1 View .HISTORY: Dyspnea and COVID-19.TECHNIQUE: AP view .COMPARISON: 04/06/2021.TECHNICAL QUALITY: Satisfactory .FINDINGS:Emphysematous changes with hyperlucency and hyper expansion.Continued mild consolidation right base. No definite developing pneumonia left base. No pleural fluid or pneumothorax.Unremarkable cardio mediastinal silhouette.IMPRESSION:1. Unchanged mild right basilar pneumonia and COPD.2. No evidence of developing pneumonia left base.Electronically signed by: Avila Retana (Apr 07, 2021 05:41:56)
[2021-04-07] MEDS: NS 1000 ML 1,000 ML IV SCH (06:14)
[2021-04-07 06:43] LABS: BASOPHILS % (AUTO) 0.1 % (0.2-1.0); HEMATOCRIT 39.9 % (36.0-47.0); HEMOGLOBIN 13.5 g/dL (12.0-16.0); LYMPHOCYTES # (AUTO) 0.3 X10^3/uL (1.3-2.9); LYMPHOCYTES % (AUTO) 1.7 % (21.0-51.0); MEAN CORPUSCULAR HEMOGLOBIN 31.7 pg (27.0-34.0); MEAN CORPUSCULAR HGB CONC 33.8 g/dL (33.0-35.0); MEAN CORPUSCULAR VOLUME 93.7 fL (80.0-100.0); MEAN PLATELET VOLUME 8.4 fL (7.4-11.0); MONOCYTES # (AUTO) 0.6 x10^3/uL (0.3-0.8); MONOCYTES % (AUTO) 4.1 % (0.0-13.0); NEUTROPHILS # (AUTO) 14.3 x10^3/uL (2.2-4.8); NEUTROPHILS % (AUTO) 94.1 % (42.0-75.0); PLATELET COUNT 218 X10^3/uL (150.0-450.0); RED BLOOD COUNT 4.25 X10^6/uL (3.5-5.4); RED CELL DISTRIBUTION WIDTH 14.9 % (11.6-16.5); WHITE BLOOD COUNT 15.2 X10^3/uL (3.6-10.0)
[2021-04-07 06:45] LABS: ALANINE AMINOTRANSFERASE 36 Units/L (12-78); ALBUMIN 2.9 g/dL (3.4-5.0); ALKALINE PHOSPHATASE 68 Units/L (46-116); ASPARTATE AMINO TRANSFERASE 36 Units/L (15-37); BLOOD UREA NITROGEN 17 mg/dL (7-18); CALCIUM 8.7 mg/dL (8.5-10.1); CARBON DIOXIDE 33.9 mmol/L (21-32); CHLORIDE 108 mmol/L (98-107); COR CA(FOR HYPOALB) 9.6 mg/dL (8.5-10.1); COR NA(FOR HYPERGLY) 148 mmol/L (136-145); CREATININE 0.53 mg/dL (0.55-1.02); SODIUM 147 mmol/L (136-145); TOTAL PROTEIN 6.2 g/dL (6.4-8.2); eGFR NON BLACK RACES > 60 (>60)
[2021-04-07 08:10] LABS: BAND NEUTROPHILS % 4 % (0-10); PLATELET MORPHOLOGY COMMENT NORMAL (NORMAL)
[2021-04-07] MEDS: MAGIC MOUTHWASH MT SCH (08:43)
[2021-04-07] MEDS: ROBITUSSIN DM PO SCH (08:52)
[2021-04-07] MEDS: VSL#3 PO SCH (08:52)
[2021-04-07] MEDS: MUCINEX EXPECTORANT PO SCH (08:52)
[2021-04-07] MEDS: NORVASC TAB 10 MG PO SCH (08:52)
[2021-04-07] MEDS: VANCOMYCIN IV *PREMIX 750 mg/150 ML BAG 750 MG/150 ML PIGGYBACK IV SCH (08:53)
[2021-04-07] MEDS: TOPROL XL PO SCH (08:53)
[2021-04-07] MEDS: THEO-DUR TAB 300 MG 12-HR PO SCH (08:53)
[2021-04-07] MEDS: ZANAFLEX PO SCH (08:53)
[2021-04-07] MEDS ORDERED: TYLENOL 325 MG TAB PO PRN (10:06)
[2021-04-07 12:03] VITALS: BP 117/57
[2021-04-12] MEDS ORDERED: PULMICORT NEB TX 0.5 MG NEB PRN (09:00)
== END 2021-04-07 12:25 | disposition hospice, home (50) | DRG 194 ==
LOC: ER 23:43 → MED/SURG 04-05 05:04
PROVIDERS: ADMIT Internal Medicine; ATTEND Internal Medicine
DX: E78.2 Mixed hyperlipidemia; J44.1 Chronic obstructive pulmonary disease with (acute) exacerbation; Z20.822 Contact with and (suspected) exposure to COVID-19; J18.8 Other pneumonia, unspecified organism; I10 Essential (primary) hypertension; K21.9 Gastro-esophageal reflux disease without esophagitis; Z99.81 Dependence on supplemental oxygen